=== PATIENT | male | born 1955 | race Caucasian/White ===

== ENCOUNTER 2019-02-19 16:34 | Inpatient (IN) | payer BC ==
[~2019-02-19] VITALS: Ht 185.4 cm; Wt 102.8 kg
[2019-02-19 22:00] VITALS: BP 121/64; PULSE 71; RESP 18
[2019-02-19] MEDS ORDERED: OLANZAPINE 2.5 MG TAB GTB PRN (22:00)
[2019-02-19] MEDS ORDERED: BISACODYL 10 MG SUPP PR PRN (22:00)
[2019-02-19] MEDS ORDERED: MAGNESIUM HYDROXIDE 30ML CUP GTB PRN (22:00)
[2019-02-19] MEDS ORDERED: NA PHOSPHATE/BIPHOS 133 ML ENEMA PR PRN (22:00)
[2019-02-19] MEDS ORDERED: PENDING SANTYL ORDER FOR WOUND CARE XX PRN (23:00)
[2019-02-20] MEDS: ALBUTEROL 0.083% (NEB) 2.5 MG/3 ML AMP HHN SCH ×6 (00:17→20:00)
[2019-02-20 02:25] VITALS: BP 151/78; PULSE 65; RESP 18
[2019-02-20 06:35] VITALS: Ht 185.4 cm; Wt 102.8 kg
[2019-02-20 08:00] VITALS: BP 110/60; PULSE 68; RESP 19
[2019-02-20] MEDS: CHOLECALCIFEROL 2,000 UNIT CAP GTB SCH (08:28)
[2019-02-20] MEDS: DOCUSATE SODIUM 10 MG/ML (10ML CUP) GTB SCH ×2 (08:28→21:40)
[2019-02-20] MEDS: FAMOTIDINE 20 MG TAB GTB SCH ×2 (08:28→21:40)
[2019-02-20] MEDS: NICOTINE (7 MG/24 HR) PATCH TRANSDERM SCH (08:28)
[2019-02-20] MEDS: ASPIRIN 81 MG TAB GTB SCH (08:28)
[2019-02-20] MEDS: CYANOCOBALAMIN 500 MCG TAB GTB SCH (08:28)
[2019-02-20] MEDS: CLOPIDOGREL 75 MG TAB GTB SCH (08:28)
[2019-02-20] MEDS: POLYETHYLENE GLYCOL 17 GM PACKET GTB SCH (08:29)
[2019-02-20] MEDS: LISINOPRIL 10 MG TAB GTB SCH (08:29)
--- NOTE | 2019-02-20 11:53 | CONS ---
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 ACTIVE COMORBIDITIES: 1. 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 2. Dysphagia, status post percutaneous endoscopic gastrostomy. 3. Aspiration pneumonia, acute respiratory failure. 4. Hyperlipidemia. 5. Hypertension. 6. Sepsis, urinary tract infection. 7. Gastritis. 8. Status post Clostridium difficile. 9. Hyperkalemia. 10. Impairments in self-care, mobility and cognition. HISTORY OF PRESENT ILLNESS: The patient is a 63-year-old male with a history of multiple medical comorbidities including hypertension, hyperlipidemia, coronary artery disease who was admitted to [facility] on 12/20/2018 with left-sided weakness. The patient was noted to have an infarct cerebrovascular accident in addition to right MCA and ICA occlusion. The patient underwent ELVO with thrombectomy and stent placement into the right carotid artery. The patient's hospital course was notable for vasogenic edema, aspiration pneumonia and dysphagia requiring PEG placement; cystitis in addition to sepsis, gastritis, anemia, and Clostridium difficile colitis. The patient has been stabilized. The patient was stabilized and transferred to halfway facility. The patient had improvement in level of alertness, activity tolerance, and participation and patient's family requested activities at the acute rehabilitation unit level. The patient was transferred to the rehabilitation unit for rehabilitation trial at the acute therapy level. FUNCTIONAL HISTORY: Prior to recent events, he was independent in self-care tasks and mobility. Currently, he is dependent, total assist for self-care and mobility tasks. I have reviewed the preadmission screen and patient's current functional status is consistent with the preadmission screen. FAMILY AND SOCIAL HISTORY: The patient normally resides at home with his in a multilevel home. He does hope to return home. He reports various modifications that he has at home including a stair lift. PAST MEDICAL HISTORY: 1. Hyperlipidemia. 2. Hypertension. 3. Myocardial infarction. 4. Gastritis. CURRENT MEDICATIONS: 1. Tylenol p.r.n. 2. Albuterol inhaler. 3. Pepcid 20 mg b.i.d. 4. Nicotine patch. 5. Zyprexa 0.5 mg p.o. at bedtime p.r.n. 6. MiraLax daily. 7. Aspirin 81 mg daily. 8. Atorvastatin 80 mg daily. 9. Carvedilol 12.5 mg b.i.d. 10. Lisinopril 10 mg p.o. daily. 11. Clopidogrel 15 mg daily. ALLERGIES: THE PATIENT WITH NO KNOWN DRUG ALLERGIES. PHYSICAL EXAMINATION: VITAL SIGNS: He is currently afebrile with stable vital signs. HEENT: Extra ocular motions appear intact. He has a nasal cannula in place. The oropharynx is clear. LUNGS: Clear anteriorly. CARDIAC: S1, S2. ABDOMEN: Soft, nontender, positive bowel sounds. NEUROLOGIC: He is awake and alert. He is oriented to person, hospital, and the month. However, when asked for the year he reported it was 1918. He has 0 out of 3 object recall at 5 minutes. He demonstrates good strength in the right upper and lower extremity. He has flaccid left upper and lower extremity. PLAN: The patient has been admitted for comprehensive interdisciplinary acute rehabilitation unit trial. The patient's activities will include: 1. Physical therapy to focus on bed mobility, trunk control, transfers, and wheelchair mobility with the goal of having the patient reach a 1-person assist level for transfers and wheelchair level activities. 2. Occupational therapy to focus on hygiene, grooming, dressing, bathing, and toileting activities at the seated level with the goal of having the patient reach a mod assist level for upper body self-care activities. 3. Rehabilitation nursing for carryover of therapeutic interventions, the goal of continent of bowel and bladder, and the goal of patient education with regards to the aforementioned issues. 4. Speech therapy for full cognitive assessment and retraining with the goal of having the patient return to baseline cognition in addition to full dysphagia evaluation with the goal of having the patient meet nutritional needs by mouth and have PEG removal. 5. Neuropsychology for full cognitive assessment and oversight of cognitive program. REHABILITATION BARRIER: Significant left-sided weakness. INTERVENTION FOR BARRIER: Interdisciplinary approach. ESTIMATED LENGTH OF STAY: Will perform the rehabilitation unit trial with anticipation in a full 14 days. I acknowledge that I performed a full physical examination on this patient within 24 hours of admission to the rehabilitation unit. I believe the patient is a candidate for rehabilitation unit trial and he is anticipated to make reasonable goals in a reasonable period of time as outlined above. Dictated By: ZEV GOLDEN/JOLIE Conf#: [id number] DID#: [id number] CC: SUNITA DAVIDSON DO;*EndCC* MTDD
[2019-02-20 14:00] VITALS: BP 96/55; PULSE 67; RESP 19
--- NOTE | 2019-02-20 14:10 | CONS ---
DATE OF ADMISSION: 02/19/2019 DATE OF CONSULTATION: 02/20/2019 HISTORY OF PRESENT ILLNESS: The patient is a 63-year-old gentleman with past medical history of hype rtension, hyperlipidemia, coronary artery disease. Patient admitted to [facility] on 12/20 with left-sided weakness, noted to have acute infarct in the right MCA and ICA occlusion. The patient underwent thrombectomy and stent placement in the right carotid artery. The patient's hospit al course was notable for vasogenic edema, aspiration pneumonia, dysphagia. Patient required intubat ion and tracheostomy, PEG placement. The patient stabilized and was able to be extubated and now is without any vent or trach. The patient has a left-sided hemiplegia with neglect. Patient transferre d to the rehabilitation unit for acute therapy. Patient admits to being depressed, complaining of pa in and complains of separation in his shoulder. He claims that his left Achilles tendon ruptured in the hospital, pain on the right side as a compensation for physical therapy, gets tired very quickly. The patient had pneumonia, was treated fully, unsure if this was seen in followup. He denies fever s, chills, nausea, vomiting, chest pain, shortness of breath. PAST MEDICAL HISTORY: As above, also include CO, gastritis. MEDICATIONS: 1. Albuterol. 2. Pepcid. 3. Nicotine. 4. Zyprexa. 5. MiraLax. 3. Aspirin. 4. Lipitor. 5. Coreg. 6. Lisinopril. 7. Plavix. ALLERGIES: PATIENT HAS NO KNOWN ALLERGIES. SOCIAL HISTORY: The patient does not smoke, drink or do drugs. FAMILY HISTORY: No history of kidney disease. REVIEW OF SYSTEMS: A 14-point review of systems attempted and negative. PHYSICAL EXAMINATION: VITAL SIGNS: We see temperature 98, blood pressure 151/78, pulse is 72. HEENT: Normocephalic. Pupils are reactive. NECK: Supple. HEART: Regular rate and rhythm. LUNGS: Clear to auscultation. ABDOMEN: Soft, nontender, nondistended. Bowel sounds present. LABORATORY EVALUATION: White count 12, hemoglobin 13, hematocrit 40. Sodium is 144, potassium 4.1, BUN 34, creatinine 1.1, albumin 3.6. UA is reviewed microscopy. IMPRESSION: 1. Status post right middle cerebral artery stroke status post thrombectomy and stent placement, rig ht carotid artery. Continue physical therapy as outlined, optimization for peripheral arterial disea se as already started with Plavix, Lipitor, Coreg and lisinopril and aspirin. Continue to monitor. 2. Recent Enterobacter pneumonia fully treated, required trach and PEG placement, completely decannu lated now. 3. Do chest x-rays as a baseline to make sure that no evidence of leukocytosis on admission. Trend. Check UA and chest x-ray. 4. History of hypertension, borderline at this time. Continue regular medications and monitor. 5. Coronary artery disease. Again, secondary prevention. 6. Depression. The patient will benefit from psychiatrist and psychologist evaluation. We will see what resources reveal here in acute rehab unit. Dictated By: BALTAZAR UGALDE MD DF/JOLIE Conf#: [id number] DID#: [id number] CC: SUNITA DAVIDSON DO;*End*
[2019-02-20] MEDS: ATORVASTATIN 80 MG TAB GTB SCH (21:40)
[2019-02-20] MEDS: SENNA TAB GTB SCH (21:40)
[2019-02-21] MEDS: ALBUTEROL 0.083% (NEB) 2.5 MG/3 ML AMP HHN SCH ×6 (01:00→20:01)
[2019-02-21 07:30] VITALS: BP 122/62; PULSE 78; RESP 20
[2019-02-21] MEDS: NICOTINE (7 MG/24 HR) PATCH TRANSDERM SCH (09:25)
[2019-02-21] MEDS: CLOPIDOGREL 75 MG TAB GTB SCH (09:25)
[2019-02-21] MEDS: LISINOPRIL 10 MG TAB GTB SCH (09:25)
[2019-02-21] MEDS: DOCUSATE SODIUM 10 MG/ML (10ML CUP) GTB SCH ×2 (09:25→20:15)
[2019-02-21] MEDS: POLYETHYLENE GLYCOL 17 GM PACKET GTB SCH (09:25)
[2019-02-21] MEDS: FAMOTIDINE 20 MG TAB GTB SCH ×2 (09:25→20:14)
[2019-02-21] MEDS: CHOLECALCIFEROL 2,000 UNIT CAP GTB SCH (09:25)
[2019-02-21] MEDS: ASPIRIN 81 MG TAB GTB SCH (09:26)
[2019-02-21] MEDS: CYANOCOBALAMIN 500 MCG TAB GTB SCH (09:26)
[2019-02-21] MEDS ORDERED: GLUCOSE GEL 15 GRAM TUBE PO PRN ×2 (14:30)
[2019-02-21] MEDS ORDERED: DEXTROSE 50% 50 ML SYRINGE IV PRN ×2 (14:30)
[2019-02-21] MEDS ORDERED: GLUCAGON 1 MG INJ IM PRN (14:30)
[2019-02-21] MEDS ORDERED: GLUCOSE GEL 15 GRAM TUBE BUCCAL PRN (14:30)
--- NOTE | 2019-02-21 15:01 | PN ---
Date/Time of Note Date/Time of Note DATE: 02/21/19 TIME: 14:59 Subjective No new complaints Objective Vital Signs Date Temp Pulse Resp B/P (MAP) Pulse Ox O2 O2 Flow FiO2 Time Delivery Rate 02/21/19 78 18 95 Nasal 2.0 07:55 Cannula 02/21/19 98.2 122/62 07:30 (82) 02/20/19 21 20:00 Intake and Output 02/20/19 02/20/19 02/21/19 1515:00 23:00 07:00 IntakeIntake Total 300 ml 920 ml 930 ml BalanceBalance 300 ml 920 ml 930 ml Exam pulm-cta dependent Results/Medications Result Diagram: 02/21/1962102/20/19 0633 Results 24 hrs Laboratory Tests Test 02/20/19 15:00 02/21/19 06:22 Urine Color YELLOW Urine Clarity SLIGHTLY CLOUDY A Urine pH 6.0 Urine Specific Raymond 1.019 Urine Ketones NEGATIVE Urine Nitrite NEGATIVE Urine Bilirubin NEGATIVE Urine Urobilinogen 1+ H Urine Leukocyte Esterase NEGATIVE Urine Microscopic RBC 1 Urine Microscopic WBC 1 Urine Squamous Epithelial Cells FEW Urine Bacteria FEW A Urine Hemoglobin NEGATIVE Urine Glucose NEGATIVE Urine Total Protein NEGATIVE White Blood Count 13.4 H Red Blood Count 4.62 L Hemoglobin 13.5 L Hematocrit 42.0 Mean Corpuscular Volume 90.9 Mean Corpuscular Hemoglobin 29.2 Mean Corpuscular Hemoglobin Concent 32.1 Red Cell Distribution Width 16.3 H Platelet Count 328 Mean Platelet Volume 12.9 H Immature Granulocytes % 0.400 Neutrophils % 64.8 Lymphocytes % 19.5 Monocytes % 8.2 Eosinophils % 6.3 Basophils % 0.8 Nucleated Red Blood Cells % 0.0 Immature Granulocytes # 0.060 H Neutrophils # 8.7 H Lymphocytes # 2.6 Monocytes # 1.1 H Eosinophils # 0.8 H Basophils # 0.1 Nucleated Red Blood Cells # 0.0 Medications Current Medications Acetaminophen (Tylenol Tab) 650 mg Q4H PRN PEG MILD PAIN(1-3)OR ELEVATED TEMP; Start 02/19/19 at 22:00 Albuterol (Proventil 0.083% (Neb)) 2.5 mg Q4H RESP THERAPY HHN Last administered on 02/21/19at 07:53; Admin Dose 2.5 MG; Start 02/20/19 at 01:00 Aspirin (Aspirin) 81 mg DAILY GTB Last administered on 02/21/19 09:26; Admin Dose 81 MG; Start 02/20/19 at 09:00 Atorvastatin Calcium (Lipitor) 80 mg HS GTB Last administered on 02/20/19 2 1:40; Admin Dose 80 MG; Start 02/20/19 at 21:00 Carvedilol (Coreg) 12.5 mg BID GTB Last administered on 02/21/19 09:26; Admin Dose 12.5 MG; Start 02/20/19 at 09:00 Docusate Sodium (Colace Liquid Cup) 100 mg BID GTB Last administered on 02/21/19 09:25; Admin Dose 100 MG; Start 02/20/19 at 09:00 Bisacodyl (Dulcolax Supp) 10 mg DAILY PRN [place] CONSTIPATION; Start 02/19/19 at 22:00 Sodium Biphosphate/ Sodium Phosphate (Fleet Enema) 133 ml DAILY PRN [place] CONSTIPATION; Start 02/19/19 at 22:00 Lisinopril (Zestril) 10 mg DAILY GTB Last administered on 02/21/19 09:25; Admin Dose 10 MG; Start 02/20/19 at 09:00 Magnesium Hydroxide (Milk Of Mag) 30 ml DAILY PRN GTB CONSTIPATION; Start 02/19/19 at 22:00 Polyethylene Glycol (Miralax) 17 gm DAILY GTB Last administered on 02/21/19 09:25; Admin Dose 17 GM; Start 02/20/19 at 09:00 Nicotine (Nicoderm 7 Mg/ 24 Hr) 1 patch DAILY TRANSDERM Last administered on 02/21/19 09:25; Admin Dose 1 PATCH; Start 02/20/19 at 09:00 Famotidine (Pepcid) 20 mg BID GTB Last administered on 02/21/19 09:25; Admin Dose 20 MG; Start 02/20/19 at 09:00 Clopidogrel Bisulfate (plaVIX) 75 mg DAILY GTB Last administered on 02/21/19 09:25; Admin Dose 75 MG; Start 02/20/19 at 09:00 Senna (Senokot) 1 tab HS GTB Last administered on 02/20/19 21:40; Admin Dose 1 TAB; Start 02/20/19 at 21:00 Cyanocobalamin (Vitamin B12) 1,000 mcg DAILY GTB Last administered on 02/21/19at 09:26; Admin Dose 1,000 MCG; Start 02/20/19 at 09:00 Cholecalciferol (Vitamin D) 2,000 unit DAILY GTB Last administered on 02/21/19at 09:25; Admin Dose 2,000 UNIT; Start 02/20/19 at 09:00 Olanzapine (Zyprexa) 2.5 mg HS PRN GTB ANXIETY; Start 02/19/19 at 22:00 [facility]isc[facility] This patient sandhu... PRN PRN XX WOUND CARE; Start 02/19/19 at 23:00 Insulin Aspart (Novolog Insulin Pen) NOVOLOG *MILD* ALGORI... Q6 SC ; Start 02/21/19 at 18:00 Miscellaneous Information 1 ea NOTE XX ; Start 02/21/19 at 14:30 Glucose (Glutose) 15 gm Q15M PRN PO DECREASED GLUCOSE; Start 02/21/19 at 14:30 Glucose (Glutose) 22.5 gm Q15M PRN PO DECREASED GLUCOSE; Start 02/21/19 at 14:30 Dextrose (D50w Syringe) 25 ml Q15M PRN IV DECREASED GLUCOSE; Start 02/21/19 at 14:30 Dextrose (D50w Syringe) 50 ml Q15M PRN IV DECREASED GLUCOSE; Start 02/21/19 at 14:30 Glucagon (Glucagen) 1 mg Q15M PRN IM DECREASED GLUCOSE; Start 02/21/19 at 14:30 Glucose (Glutose) 15 gm Q15M PRN BUCCAL DECREASED GLUCOSE; Start 02/21/19 at 14:30 Assessment/Plan Additional Assessment/Plan Rehab- 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 Continue rehab program Dysphagia, status post PEG. Case reviewed with ST, will schedule videofluoro Aspiration pneumonia, acute respiratory failure. Hyperlipidemia. Hypertension. s/p Sepsis, urinary tract infection. Gastritis. ZEV LIVE MD Feb 21, 2019 15:00
[2019-02-21 15:23] VITALS: BP 95/59; PULSE 67; RESP 18
[2019-02-21] MEDS: INSULIN ASPART [NOVOLOG] 3 ML PEN SC SCH (17:42)
[2019-02-21 20:12] VITALS: BP 137/70; PULSE 74; RESP 19
[2019-02-21] MEDS: ATORVASTATIN 80 MG TAB GTB SCH (20:14)
[2019-02-21] MEDS: SENNA TAB GTB SCH (20:14)
[2019-02-21] MEDS: ACETAMINOPHEN 325 MG TAB PEG PRN (20:14)
--- NOTE | 2019-02-21 22:58 | CONS ---
Consult Date/Type/Reason Admit Date/Time Feb 19, 2019 at 21:20 Initial Consult Date 63-year-old gentleman with past medical history of hypertension, hyperlipidemia, coronary artery disease. Patient admitted to [facility] on 12/20/2018 with left-sided weakness, noted to have acute infarct in the right MCA and ICA occlusion. The patient underwent thrombectomy and stent placement in the right carotid artery. The patient's hospital course was notable for vasogenic edema, aspiration pneumonia, dysphagia. Patient required intubation and tracheostomy, PEG placement. The patient stabilized and was able to be extubated and now is without any vent or trach. The patient has a left-sided hemiplegia with neglect. Patient transferred to the rehabilitation unit for acute therapy. Patient admits to being depressed, complaining of pain and complains of separation in his shoulder. He claims that his left Achilles tendon ruptured in the hospital, pain on the right side as a compensation for physical therapy, gets tired very quickly. The patient had pneumonia, was treated fully. He denies fevers, chills, nausea, vomiting, chest pain, shortness of breath. tolerates meds and therapies. a little less depressed today. PHYSICAL EXAMINATION: HEENT: Normocephalic. Pupils are reactive. NECK: Supple. HEART: Regular rate and rhythm. LUNGS: Clear to auscultation. ABDOMEN: Soft, nontender, nondistended. Bowel sounds present. Date/Time of Note DATE: 02/21/19 TIME: 22:56 Objective Vitals Vital Signs Date Temp Pulse Resp B/P (MAP) Pulse Ox O2 O2 Flow FiO2 Time Delivery Rate 02/21/19 97.9 74 19 137/70 96 20:12 (92) 02/21/19 2.0 20:01 02/21/19 Nasal 20:01 Cannula 02/20/19 21 20:00 Intake and Output 02/20/19 02/20/19 02/21/19 1515:00 23:00 07:00 IntakeIntake Total 300 ml 920 ml 930 ml BalanceBalance 300 ml 920 ml 930 ml Results/Medications Result Diagram: 02/21/19 0622 02/20/19 0633 Results 24 hrs Laboratory Tests Test 02/21/19 06:22 02/21/19 17:34 White Blood Count 13.4 H Red Blood Count 4.62 L Hemoglobin 13.5 L Hematocrit 42.0 Mean Corpuscular Volume 90.9 Mean Corpuscular Hemoglobin 29.2 Mean Corpuscular Hemoglobin Concent 32.1 Red Cell Distribution Width 16.3 H Platelet Count 328 Mean Platelet Volume 12.9 H Immature Granulocytes % 0.400 Neutrophils % 64.8 Lymphocytes % 19.5 Monocytes % 8.2 Eosinophils % 6.3 Basophils % 0.8 Nucleated Red Blood Cells % 0.0 Immature Granulocytes # 0.060 H Neutrophils # 8.7 H Lymphocytes # 2.6 Monocytes # 1.1 H Eosinophils # 0.8 H Basophils # 0.1 Nucleated Red Blood Cells # 0.0 Bedside Glucose 111 Medications Current Medications Acetaminophen (Tylenol Tab) 650 mg Q4H PRN PEG MILD PAIN(1-3)OR ELEVATED TEMP Last administered on 02/21/19 20:14; Admin Dose 650 MG; Start 02/19/19 at 22:00 Albuterol (Proventil 0.083% (Neb)) 2.5 mg Q4H RESP THERAPY HHN Last administered on 02/21/19 20:01; Admin Dose 2.5 MG; Start 02/20/19 at 01:00 Aspirin (Aspirin) 81 mg DAILY GTB Last administered on 02/21/19 09:26; Admin Dose 81 MG; Start 02/20/19 at 09:00 Atorvastatin Calcium (Lipitor) 80 mg HS GTB Last administered on 02/21/19 20:14; Admin Dose 80 MG; Start 02/20/19 at 21:00 Carvedilol (Coreg) 12.5 mg BID GTB Last administered on 02/21/19 20:15; Admin Dose 12.5 MG; Start 02/20/19 at 09:00 Docusate Sodium (Colace Liquid Cup) 100 mg BID GTB Last administered on 02/21/19 20:15; Admin Dose 100 MG; Start 02/20/19 at 09:00 Bisacodyl (Dulcolax Supp) 10 mg DAILY PRN [place] CONSTIPATION; Start 02/19/19 at 22:00 Sodium Biphosphate/ Sodium Phosphate (Fleet Enema) 133 ml DAILY PRN [place] CONSTIPATION; Start 02/19/19 at 22:00 Lisinopril (Zestril) 10 mg DAILY GTB Last administered on 02/21/19 09:25; Admin Dose 10 MG; Start 02/20/19 at 09:00 Magnesium Hydroxide (Milk Of Mag) 30 ml DAILY PRN GTB CONSTIPATION; Start 02/19/19 at 22:00 Polyethylene Glycol (Miralax) 17 gm DAILY GTB Last administered on 02/21/19at 0 9:25; Admin Dose 17 GM; Start 02/20/19 at 09:00 Nicotine (Nicoderm 7 Mg/ 24 Hr) 1 patch DAILY TRANSDERM Last administered on 02/21/19 09:25; Admin Dose 1 PATCH; Start 02/20/19 at 09:00 Famotidine (Pepcid) 20 mg BID GTB Last administered on 02/21/19 20:14; Admin Dose 20 MG; Start 02/20/19 at 09:00 Clopidogrel Bisulfate (plaVIX) 75 mg DAILY GTB Last administered on 02/21/19 09:25; Admin Dose 75 MG; Start 02/20/19 at 09:00 Senna (Senokot) 1 tab HS GTB Last administered on 02/21/19 20:14; Admin Dose 1 TAB; Start 02/20/19 at 21:00 Cyanocobalamin (Vitamin B12) 1,000 mcg DAILY GTB Last administered on 02/21/19 09:26; Admin Dose 1,000 MCG; Start 02/20/19 at 09:00 Cholecalciferol (Vitamin D) 2,000 unit DAILY GTB Last administered on 02/21/19 09:25; Admin Dose 2,000 UNIT; Start 02/20/19 at 09:00 Olanzapine (Zyprexa) 2.5 mg HS PRN GTB ANXIETY Last administered on 02/21/19 22:22; Admin Dose 2.5 MG; Start 02/19/19 at 22:00 Miscellaneous Information (Pending [facility] Order For Wound Care) This patient sandhu... PRN PRN XX WOUND CARE; Start 02/19/19 at 23:00 Insulin Aspart (Novolog Insulin Pen) NOVOLOG *MILD* ALGORI... Q6 SC ; Start 02/21/19 at 18:00 Miscellaneous Information 1 ea NOTE XX ; Start 02/21/19 at 14:30 Glucose (Glutose) 15 gm Q15M PRN PO DECREASED GLUCOSE; Start 02/21/19 at 14:30 Glucose (Glutose) 22.5 gm Q15M PRN PO DECREASED GLUCOSE; Start 02/21/19 at 14:30 Dextrose (D50w Syringe) 25 ml Q15M PRN IV DECREASED GLUCOSE; Start 02/21/19 at 14:30 Dextrose (D50w Syringe) 50 ml Q15M PRN IV DECREASED GLUCOSE; Start 02/21/19 at 14:30 Glucagon (Glucagen) 1 mg Q15M PRN IM DECREASED GLUCOSE; Start 02/21/19 at 14:30 Glucose (Glutose) 15 gm Q15M PRN BUCCAL DECREASED GLUCOSE; Start 02/21/19 at 14:30 Assessment/Plan Hospital Course (Demo Recall) 1. 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 Continue physical therapy as outlined, optimization for peripheral arterial disease as already started with Plavix, Lipitor, Coreg and lisinopril and aspirin. Continue to monitor. 2. Recent Enterobacter pneumonia fully treated, required trach and PEG placement, completely decannulated now. 3. leucocytosis. Do chest x-rays as a baseline to make sure that no evidence o f leukocytosis on admission. Trend. Check UA and chest x-ray. 4. History of hypertension, borderline at this time. Continue regular medications and monitor. 5. Coronary artery disease. secondary prevention. 6. Depression. The patient will benefit from psychiatrist and psychologist evaluation. We will see what resources reveal here in acute rehab unit. BALTAZAR UGALDE MD Feb 21, 2019 22:58
[2019-02-22] MEDS: ALBUTEROL 0.083% (NEB) 2.5 MG/3 ML AMP HHN SCH ×5 (01:00→20:06)
[2019-02-22 02:06] VITALS: BP 136/66; PULSE 68; RESP 20
[2019-02-22] MEDS: INSULIN ASPART [NOVOLOG] 3 ML PEN SC SCH ×2 (06:00)
[2019-02-22 07:00] VITALS: BP 108/61; PULSE 66; RESP 18
[2019-02-22] MEDS: LISINOPRIL 10 MG TAB GTB SCH (09:00)
[2019-02-22] MEDS: NICOTINE (7 MG/24 HR) PATCH TRANSDERM SCH (10:00)
[2019-02-22] MEDS: DOCUSATE SODIUM 10 MG/ML (10ML CUP) GTB SCH ×2 (10:00→20:57)
[2019-02-22] MEDS: CLOPIDOGREL 75 MG TAB GTB SCH (10:01)
[2019-02-22] MEDS: CYANOCOBALAMIN 500 MCG TAB GTB SCH (10:01)
[2019-02-22] MEDS: FAMOTIDINE 20 MG TAB GTB SCH ×2 (10:01→21:09)
[2019-02-22] MEDS: ASPIRIN 81 MG TAB GTB SCH (10:01)
[2019-02-22] MEDS: CHOLECALCIFEROL 2,000 UNIT CAP GTB SCH (10:01)
[2019-02-22] MEDS: POLYETHYLENE GLYCOL 17 GM PACKET GTB SCH (10:05)
--- NOTE | 2019-02-22 10:35 | CONS ---
Consult Date/Type/Reason Admit Date/Time Feb 19, 2019 at 21:20 Initial Consult Date 63-year-old gentleman with past medical history of hypertension, hyperlipidemia, coronary artery disease. Patient admitted to [facility] on 12/20/2018 with left-sided weakness, noted to have acute infarct in the right MCA and ICA occlusion. The patient underwent thrombectomy and stent placement in the right carotid artery. The patient's hospital course was notable for vasogenic edema, aspiration pneumonia, dysphagia. Patient required intubation and tracheostomy, PEG placement. The patient stabilized and was able to be extubated and now is without any vent or trach. The patient has a left-sided hemiplegia with neglect. Patient transferred to the rehabilitation unit for acute therapy. Patient admits to being depressed, complaining of pain and complains of separation in his shoulder. He claims that his left Achilles tendon ruptured in the hospital, pain on the right side as a compensation for physical therapy, gets tired very quickly. The patient had pneumonia, was treated fully. He denies fevers, chills, nausea, vomiting, chest pain, shortness of breath. tolerates meds and therapies. a little less depressed today. PHYSICAL EXAMINATION: HEENT: Normocephalic. Pupils are reactive. NECK: Supple. HEART: Regular rate and rhythm. LUNGS: Clear to auscultation. ABDOMEN: Soft, nontender, nondistended. Bowel sounds present. Date/Time of Note DATE: 02/22/19 TIME: 10:34 Subjective 63-year-old gentleman with past medical history of hypertension, hyperlipidemia, coronary artery disease. Patient admitted to [facility] on 12/20/2018 with left-sided weakness, noted to have acute infarct in the right MCA and ICA occlusion. The patient underwent thrombectomy and stent placement in the right carotid artery. The patient's hospital course was notable for vasogenic edema, aspiration pneumonia, dysphagia. Patient required intubation and tracheostomy, PEG placement. The patient stabilized and was able to be extubated and now is without any vent or trach. The patient has a left-sided hemiplegia with neglect. Patient transferred to the rehabilitation unit for acute therapy. Patient admits to being depressed, complaining of pain and complains of separation in his shoulder. He claims that his left Achilles tendon ruptured in the hospital, pain on the right side as a compensation for physical therapy, gets tired very quickly. The patient had pneumonia, was treated fully. He denies fevers, chills, nausea, vomiting, chest pain, shortness of breath. tolerates meds and therapies. denies co PHYSICAL EXAMINATION: HEENT: Normocephalic. Pupils are reactive. NECK: Supple. HEART: Regular rate and rhythm. LUNGS: Clear to auscultation. ABDOMEN: Soft, nontender, nondistended. Bowel sounds present. Objective Vitals Vital Signs Date Temp Pulse Resp B/P (MAP) Pulse Ox O2 O2 Flow FiO2 Time Delivery Rate 02/22/19 76 20 Nasal 09:45 Cannula 02/22/19 2.0 09:45 02/22/19 97.8 108/61 96 07:00 (77) 02/20/19 21 20:00 Intake and Output 02/21/19 02/21/19 02/22/19 1515:00 23:00 07:00 IntakeIntake Total 700 ml 400 ml 250 ml BalanceBalance 700 ml 400 ml 250 ml Results/Medications Result Diagram: 02/21/1922 02/20/19 0633 Results 24 hrs Laboratory Tests Test 02/21/19 17:34 02/22/19 00:06 02/22/19 06:21 Bedside Glucose 111 126 131 Medications Current Medications Acetaminophen (Tylenol Tab) 650 mg Q4H PRN PEG MILD PAIN(1-3)OR ELEVATED TEMP Last administered on 02/21/19at 20:14; Admin Dose 650 MG; Start 02/19/19 at 22:00 Albuterol (Proventil 0.083% (Neb)) 2.5 mg Q4H RESP THERAPY HHN Last administered on 02/22/19at 09:45; Admin Dose 2.5 MG; Start 02/20/19 at 01:00 Aspirin (Aspirin) 81 mg DAILY GTB Last administered on 02/22/19at 10:01; Admin Dose 81 MG; Start 02/20/19 at 09:00 Atorvastatin Calcium (Lipitor) 80 mg HS GTB Last administered on 02/21/19at 20:14; Admin Dose 80 MG; Start 02/20/19 at 21:00 Carvedilol (Coreg) 12.5 mg BID GTB Last administered on 02/21/19at 20:15; Admin Dose 12.5 MG; Start 02/20/19 at 09:00 Docusate Sodium (Colace Liquid Cup) 100 mg BID GTB Last administered on 02/22/19 10:00; Admin Dose 100 MG; Start 02/20/19 at 09:00 Bisacodyl (Dulcolax Supp) 10 mg DAILY PRN [place] CONSTIPATION; Start 02/19/19 at 22:00 Sodium Biphosphate/ Sodium Phosphate (Fleet Enema) 133 ml DAILY PRN [place] CONSTIPATION; Start 02/19/19 at 22:00 Lisinopril (Zestril) 10 mg DAILY GTB Last administered on 02/21/19 09:25; Admin Dose 10 MG; Start 02/20/19 at 09:00 Magnesium Hydroxide (Milk Of Mag) 30 ml DAILY PRN GTB CONSTIPATION; Start 02/19/19 at 22:00 Polyethylene Glycol (Miralax) 17 gm DAILY GTB Last administered on 02/22/19 10:05; Admin Dose 17 GM; Start 02/20/19 at 09:00 Nicotine (Nicoderm 7 Mg/ 24 Hr) 1 patch DAILY TRANSDERM Last administered on 02/22/19 10:00; Admin Dose 1 PATCH; Start 02/20/19 at 09:00 Famotidine (Pepcid) 20 mg BID GTB Last administered on 02/22/19 10:01; Admin Dose 20 MG; Start 02/20/19 at 09:00 Clopidogrel Bisulfate (plaVIX) 75 mg DAILY GTB Last administered on 02/22/19 10:01; Admin Dose 75 MG; Start 02/20/19 at 09:00 Senna (Senokot) 1 tab HS GTB Last administered on 02/21/19 20:14; Admin Dose 1 TAB; Start 02/20/19 at 21:00 Cyanocobalamin (Vitamin B12) 1,000 mcg DAILY GTB Last administered on 02/22/19 10:01; Admin Dose 1,000 MCG; Start 02/20/19 at 09:00 Cholecalciferol (Vitamin D) 2,000 unit DAILY GTB Last administered on 02/22/19 10:01; Admin Dose 2,000 UNIT; Start 02/20/19 at 09:00 Olanzapine (Zyprexa) 2.5 mg HS PRN GTB ANXIETY Last administered on 02/21/19 22:22; Admin Dose 2.5 MG; Start 02/19/19 at 22:00 Miscellaneous Information (Pending [facility] Order For Wound Care) This patient sandhu... PRN PRN XX WOUND CARE; Start 02/19/19 at 23:00 Insulin Aspart (Novolog Insulin Pen) NOVOLOG *MILD* ALGORI... Q6 SC ; Start 02/21/19 at 18:00 Miscellaneous Information 1 ea NOTE XX ; Start 02/21/19 at 14:30 Glucose (Glutose) 15 gm Q15M PRN PO DECREASED GLUCOSE; Start 02/21/19 at 14:30 Glucose (Glutose) 22.5 gm Q15M PRN PO DECREASED GLUCOSE; Start 02/21/19 at 14:30 Dextrose (D50w Syringe) 25 ml Q15M PRN IV DECREASED GLUCOSE; Start 02/21/19 at 14:30 Dextrose (D50w Syringe) 50 ml Q15M PRN IV DECREASED GLUCOSE; Start 02/21/19 at 14:30 Glucagon (Glucagen) 1 mg Q15M PRN IM DECREASED GLUCOSE; Start 02/21/19 at 14:30 Glucose (Glutose) 15 gm Q15M PRN BUCCAL DECREASED GLUCOSE; Start 02/21/19 at 14:30 Assessment/Plan Hospital Course (Demo Recall) 1. 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 Continue physical therapy as outlined, optimization for peripheral arterial disease as already started with Plavix, Lipitor, Coreg and lisinopril and aspirin. Continue to monitor. 2. Recent Enterobacter pneumonia fully treated, required trach and PEG p lacement, completely decannulated now. 3. leucocytosis. Do chest x-rays as a baseline to make sure that no evidence of leukocytosis on admission. Trend. Check UA and chest x-ray. 4. History of hypertension, borderline at this time. Continue regular medications and monitor. 5. Coronary artery disease. secondary prevention. 6. Depression. The patient will benefit from psychiatrist and psychologist evaluation. We will see what resources reveal here in acute rehab unit. BALTAZAR UGALDE MD Feb 22, 2019 10:35
--- NOTE | 2019-02-22 10:53 | PN ---
Date/Time of Note Date/Time of Note DATE: 02/22/19 TIME: 10:52 Subjective AWAKE ALERT NO C/O Objective Vital Signs Date Temp Pulse Resp B/P (MAP) Pulse Ox O2 O2 Flow FiO2 Time Delivery Rate 02/22/19 76 20 Nasal 09:45 Cannula 02/22/19 2.0 09:45 02/22/19 97.8 108/61 96 07:00 (77) 02/20/19 21 20:00 Intake and Output 02/21/19 02/21/19 02/22/19 1515:00 23:00 07:00 IntakeIntake Total 700 ml 400 ml 250 ml BalanceBalance 700 ml 400 ml 250 ml Exam LUNGS CTA COR RRR DENSE L GENIE CLOF MAX/DE ALL MOBS Results/Medications Result Diagram: 02/21/19 0622 02/20/19 0633 Results 24 hrs Laboratory Tests Test 02/21/19 17:34 02/22/19 00:06 02/22/19 06:21 Bedside Glucose 111 126 131 Medications Current Medications Acetaminophen (Tylenol Tab) 650 mg Q4H PRN PEG MILD PAIN(1-3)OR ELEVATED TEMP Last administered on 02/21/19 20:14; Admin Dose 650 MG; Start 02/19/19 at 22:00 Albuterol (Proventil 0.083% (Neb)) 2.5 mg Q4H RESP THERAPY HHN Last administered on 02/22/19at 09:45; Admin Dose 2.5 MG; Start 02/20/19 at 01:00 Aspirin (Aspirin) 81 mg DAILY GTB Last administered on 02/22/19 10:01; Admin Dose 81 MG; Start 02/20/19 at 09:00 Atorvastatin Calcium (Lipitor) 80 mg HS GTB Last administered on 02/21/19 20:14; Admin Dose 80 MG; Start 02/20/19 at 21:00 Carvedilol (Coreg) 12.5 mg BID GTB Last administered on 02/21/19 20:15; Admin Dose 12.5 MG; Start 02/20/19 at 09:00 Docusate Sodium (Colace Liquid Cup) 100 mg BID GTB Last administered on 02/22/19at 10:00; Admin Dose 100 MG; Start 02/20/19 at 09:00 Bisacodyl (Dulcolax Supp) 10 mg DAILY PRN [place] CONSTIPATION; Start 02/19/19 at 22:00 Sodium Biphosphate/ Sodium Phosphate (Fleet Enema) 133 ml DAILY PRN [place] CONSTIPATION; Start 02/19/19 at 22:00 Lisinopril (Zestril) 10 mg DAILY GTB Last administered on 02/21/19 09:25; Admin Dose 10 MG; Start 02/20/19 at 09:00 Magnesium Hydroxide (Milk Of Mag) 30 ml DAILY PRN GTB CONSTIPATION; Start 02/19/19 at 22:00 Polyethylene Glycol (Miralax) 17 gm DAILY GTB Last administered on 02/22/19 10:05; Admin Dose 17 GM; Start 02/20/19 at 09:00 Nicotine (Nicoderm 7 Mg/ 24 Hr) 1 patch DAILY TRANSDERM Last administered on 02/22/19 10:00; Admin Dose 1 PATCH; Start 02/20/19 at 09:00 Famotidine (Pepcid) 20 mg BID GTB Last administered on 02/22/19 10:01; Admin Dose 20 MG; Start 02/20/19 at 09:00 Clopidogrel Bisulfate (plaVIX) 75 mg DAILY GTB Last administered on 02/22/19 10:01; Admin Dose 75 MG; Start 02/20/19 at 09:00 Senna (Senokot) 1 tab HS GTB Last administered on 02/21/19at 20:14; Admin Dose 1 TAB; Start 02/20/19 at 21:00 Cyanocobalamin (Vitamin B12) 1,000 mcg DAILY GTB Last administered on 02/22/19 10:01; Admin Dose 1,000 MCG; Start 02/20/19 at 09:00 Cholecalciferol (Vitamin D) 2,000 unit DAILY GTB Last administered on 02/22/19 10:01; Admin Dose 2,000 UNIT; Start 02/20/19 at 09:00 Olanzapine (Zyprexa) 2.5 mg HS PRN GTB ANXIETY Last administered on 02/21/19at 22:22; Admin Dose 2.5 MG; Start 02/19/19 at 22:00 Miscellaneous Information (Pending [facility] Order For Wound Care) This patient sandhu... PRN PRN XX WOUND CARE; Start 02/19/19 at 23:00 Insulin Aspart (Novolog Insulin Pen) NOVOLOG *MILD* ALGORI... Q6 SC ; Start 02/21/19 at 18:00 Miscellaneous Information 1 ea NOTE XX ; Start 02/21/19 at 14:30 Glucose (Glutose) 15 gm Q15M PRN PO DECREASED GLUCOSE; Start 02/21/19 at 14:30 Glucose (Glutose) 22.5 gm Q15M PRN PO DECREASED GLUCOSE; Start 02/21/19 at 14:30 Dextrose (D50w Syringe) 25 ml Q15M PRN IV DECREASED GLUCOSE; Start 02/21/19 at 14:30 Dextrose (D50w Syringe) 50 ml Q15M PRN IV DECREASED GLUCOSE; Start 02/21/19 at 14:30 Glucagon (Glucagen) 1 mg Q15M PRN IM DECREASED GLUCOSE; Start 02/21/19 at 14:30 Glucose (Glutose) 15 gm Q15M PRN BUCCAL DECREASED GLUCOSE; Start 02/21/19 at 14 :30 Assessment/Plan Additional Assessment/Plan Rehab- 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 Continue rehab program, ASA Dysphagia, status post PEG. CLEARED FOR PUREED/ THIN. DC TUBE FEEDS EXCEPT FOR WATER PGT Aspiration pneumonia, acute respiratory failure. Hyperlipidemia. Hypertension. s/p Sepsis, urinary tract infection. Gastritis. TAMIKO LIVE MD Feb 22, 2019 10:53
[2019-02-22 14:00] VITALS: BP 128/98; PULSE 70; RESP 18
[2019-02-22 20:00] VITALS: BP 118/67; PULSE 68; RESP 18
[2019-02-22] MEDS: SENNA TAB GTB SCH (21:00)
[2019-02-22] MEDS: ATORVASTATIN 80 MG TAB GTB SCH (21:08)
[2019-02-23] MEDS: ACETAMINOPHEN 325 MG TAB PEG PRN (00:19)
[2019-02-23] MEDS: ALBUTEROL 0.083% (NEB) 2.5 MG/3 ML AMP HHN SCH ×7 (01:00→20:33)
[2019-02-23 02:00] VITALS: BP 122/62; PULSE 70; RESP 18
[2019-02-23 07:30] VITALS: BP 150/84; PULSE 80; RESP 20
[2019-02-23] MEDS: DOCUSATE SODIUM 10 MG/ML (10ML CUP) GTB SCH ×2 (08:53→21:09)
[2019-02-23] MEDS: POLYETHYLENE GLYCOL 17 GM PACKET GTB SCH (08:54)
[2019-02-23] MEDS: ASPIRIN 81 MG TAB GTB SCH (08:55)
[2019-02-23] MEDS: CLOPIDOGREL 75 MG TAB GTB SCH (08:55)
[2019-02-23] MEDS: FAMOTIDINE 20 MG TAB GTB SCH ×2 (08:55→21:04)
[2019-02-23] MEDS: CHOLECALCIFEROL 2,000 UNIT CAP GTB SCH (08:55)
[2019-02-23] MEDS: CYANOCOBALAMIN 500 MCG TAB GTB SCH (08:55)
[2019-02-23] MEDS: NICOTINE (7 MG/24 HR) PATCH TRANSDERM SCH (08:57)
[2019-02-23] MEDS: LISINOPRIL 10 MG TAB GTB SCH (08:57)
[2019-02-23 14:00] VITALS: BP 104/59; PULSE 69; RESP 20
[2019-02-23] MEDS ORDERED: ACETAMINOPHEN 500 MG TAB PO PRN (18:30)
--- NOTE | 2019-02-23 19:21 | CONS ---
Consult Date/Type/Reason Admit Date/Time Feb 19, 2019 at 21:20 Date/Time of Note DATE: 02/23/19 TIME: 19:17 Subjective 63-year-old gentleman with past medical history of hypertension, hyperlipidemia, coronary artery disease. Patient admitted to [facility] on 12/20/2018 with left-sided weakness, noted to have acute infarct in the right MCA and ICA occlusion. The patient underwent thrombectomy and stent placement in the right carotid artery. The patient's hospital course was notable for vasogenic edema, aspiration pneumonia, dysphagia. Patient required intubation and tracheostomy, PEG placement. The patient stabilized and was able to be extubated and now is without any vent or trach. The patient has a left-sided hemiplegia with neglect. Patient transferred to the rehabilitation unit for acute therapy. Patient admits to being depressed, complaining of pain and complains of separation in his shoulder. He claims that his left Achilles tendon ruptured in the hospital, pain on the right side as a compensation for physical therapy, gets tired very quickly. The patient had pneumonia, was treated fully. He denies fevers, chills, nausea, vomiting, chest pain, shortness of breath. tolerates meds and therapies. a little lethargic today. denies dysuria. noted incontinence of urine PHYSICAL EXAMINATION: HEENT: Normocephalic. Pupils are reactive. NECK: Supple. HEART: Regular rate and rhythm. LUNGS: Clear to auscultation. ABDOMEN: Soft, nontender, nondistended. Bowel sounds present. ext: no clubbing, cyanosis, edema Objective Vitals Vital Signs Date Temp Pulse Resp B/P (MAP) Pulse Ox O2 O2 Flow FiO2 Time Delivery Rate 02/23/19 97.6 69 20 104/59 96 Nasal 2.0 14:00 (74) Cannula 02/20/19 21 20:00 Intake and Output 02/22/19 02/22/19 02/23/19 1515:00 23:00 07:00 IntakeIntake Total 150 ml 700 ml 900 ml OutputOutput Total 600 ml BalanceBalance 150 ml 100 ml 900 ml Results/Medications Result Diagram: 02/21/19 0622 02/20/19 0633 Results 24 hrs Laboratory Tests Test 02/23/19 15:30 Urine Color YELLOW Urine Clarity SLIGHTLY CLOUDY A Urine pH 7.0 Urine Specific [place] 1.017 Urine Ketones NEGATIVE Urine Nitrite NEGATIVE Urine Bilirubin NEGATIVE Urine Urobilinogen 1+ H Urine Leukocyte Esterase NEGATIVE Urine Microscopic RBC 15 H Urine Microscopic WBC 3 Urine Squamous Epithelial Cells FEW Urine Amorphous Crystals FEW A Urine Bacteria FEW A Urine Hemoglobin NEGATIVE Urine Glucose NEGATIVE Urine Total Protein NEGATIVE Medications Current Medications Albuterol (Proventil 0.083% (Neb)) 2.5 mg Q4H RESP THERAPY HHN Last administered on 02/23/19 13:30; Admin Dose 2.5 MG; Start 02/20/19 at 01:00 Aspirin (Aspirin) 81 mg DAILY GTB Last administered on 02/23/19 08:55; Admin Dose 81 MG; Start 02/20/19 at 09:00 Atorvastatin Calcium (Lipitor) 80 mg HS GTB Last administered on 02/22/19 21:08; Admin Dose 80 MG; Start 02/20/19 at 21:00 Carvedilol (Coreg) 12.5 mg BID GTB Last administered on 02/23/19 08:56; Admin Dose 12.5 MG; Start 02/20/19 at 09:00 Docusate Sodium (Colace Liquid Cup) 100 mg BID GTB Last administered on 02/22/19 10:00; Admin Dose 100 MG; Start 02/20/19 at 09:00 Bisacodyl (Dulcolax Supp) 10 mg DAILY PRN [place] CONSTIPATION; Start 02/19/19 at 22:00 Sodium Biphosphate/ Sodium Phosphate (Fleet Enema) 133 ml DAILY PRN [place] CONSTIPATION; Start 02/19/19 at 22:00 Lisinopril (Zestril) 10 mg DAILY GTB Last administered on 02/23/19at 08:57; Admin Dose 10 MG; Start 02/20/19 at 09:00 Magnesium Hydroxide (Milk Of Mag) 30 ml DAILY PRN GTB CONSTIPATION; Start 02/19/19 at 22:00 Polyethylene Glycol (Miralax) 17 gm DAILY GTB Last administered on 02/22/19at 10:05; Admin Dose 17 GM; Start 02/20/19 at 09:00 Nicotine (Nicoderm 7 Mg/ 24 Hr) 1 patch DAILY TRANSDERM Last administered on 02/23/19 08:57; Admin Dose 1 PATCH; Start 02/20/19 at 09:00 Famotidine (Pepcid) 20 mg BID GTB Last administered on 02/23/19 08:55; Admin Dose 20 MG; Start 02/20/19 at 09:00 Clopidogrel Bisulfate (plaVIX) 75 mg DAILY GTB Last administered on 02/23/19 08:55; Admin Dose 75 MG; Start 02/20/19 at 09:00 Senna (Senokot) 1 tab HS GTB Last administered on 02/21/19 20:14; Admin Dose 1 TAB; Start 02/20/19 at 21:00 Cyanocobalamin (Vitamin B12) 1,000 mcg DAILY GTB Last administered on 02/23/19 08:55; Admin Dose 1,000 MCG; Start 02/20/19 at 09:00 Cholecalciferol (Vitamin D) 2,000 unit DAILY GTB Last administered on 02/23/19 08:55; Admin Dose 2,000 UNIT; Start 02/20/19 at 09:00 Olanzapine (Zyprexa) 2.5 mg HS PRN GTB ANXIETY Last administered on 02/21/19 22:22; Admin Dose 2.5 MG; Start 02/19/19 at 22:00 Miscellaneous Information (Pending [facility] Order For Wound Care) This patient sandhu... PRN PRN XX WOUND CARE; Start 02/19/19 at 23:00 Miscellaneous Information 1 ea NOTE XX ; Start 02/21/19 at 14:30 Acetaminophen (Tylenol Tab) 1,000 mg Q6H PRN PO MILD PAIN(1-3)OR ELEVATED TEMP Last administered on 02/23/19at 18:46; Admin Dose 1,000 MG; Start 02/23/19 at 18:30 Assessment/Plan Hospital Course (Demo Recall) 1. 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 Continue physical therapy as outlined, optimization for peripheral arterial disease as already started with Plavix, Lipitor, Coreg and lisinopril and aspirin. Continue to monitor. 2. Recent Enterobacter pneumonia fully treated, required trach and PEG placement, completely decannulated now. 3. leucocytosis. Do chest x-rays as a baseline to make sure that no evidence of leukocytosis on admission. Trend. Check UA and chest x-ray. 4. History of hypertension, borderline at this time. Continue regular medications and monitor. 5. Coronary artery disease. secondary prevention. 6. Depression. The patient will benefit from psychiatrist and psychologist evaluation. We will see what resources reveal here in acute rehab unit. 7. leucocytosis- persistent. possible vre uti but asymptomatic. repeat ua and c&S. BALTAZAR UGALDE MD Feb 23, 2019 19:21
[2019-02-23 20:00] VITALS: BP 104/64; PULSE 70; RESP 18
[2019-02-23] MEDS: SENNA TAB GTB SCH (21:00)
[2019-02-23] MEDS: ATORVASTATIN 80 MG TAB GTB SCH (21:05)
[2019-02-24] MEDS: ALBUTEROL 0.083% (NEB) 2.5 MG/3 ML AMP HHN SCH ×6 (01:18→20:15)
[2019-02-24 02:00] VITALS: BP 115/69; PULSE 65; RESP 18
[2019-02-24 07:30] VITALS: BP 116/74; PULSE 74; RESP 20
[2019-02-24] MEDS: DOCUSATE SODIUM 10 MG/ML (10ML CUP) GTB SCH ×2 (09:00→20:38)
[2019-02-24] MEDS: LISINOPRIL 10 MG TAB GTB SCH (09:00)
[2019-02-24] MEDS: CHOLECALCIFEROL 2,000 UNIT CAP GTB SCH (09:43)
[2019-02-24] MEDS: CLOPIDOGREL 75 MG TAB GTB SCH (09:43)
[2019-02-24] MEDS: CYANOCOBALAMIN 500 MCG TAB GTB SCH (09:43)
[2019-02-24] MEDS: FAMOTIDINE 20 MG TAB GTB SCH ×2 (09:44→20:38)
[2019-02-24] MEDS: NICOTINE (7 MG/24 HR) PATCH TRANSDERM SCH (09:44)
[2019-02-24] MEDS: ASPIRIN 81 MG TAB GTB SCH (09:44)
[2019-02-24] MEDS: POLYETHYLENE GLYCOL 17 GM PACKET GTB SCH (09:45)
--- NOTE | 2019-02-24 10:22 | CONS ---
Consult Date/Type/Reason Admit Date/Time Feb 19, 2019 at 21:20 Date/Time of Note DATE: 02/24/19 TIME: 10:20 Subjective 63-year-old gentleman with past medical history of hypertension, hyperlipidemia, coronary artery disease. Patient admitted to [facility] on 12/20/2018 with left-sided weakness, noted to have acute infarct in the right MCA and ICA occlusion. The patient underwent thrombectomy and stent placement in the right carotid artery. The patient's hospital course was notable for vasogenic edema, aspiration pneumonia, dysphagia. Patient required intubation and tracheostomy, PEG placement. The patient stabilized and was able to be extubated and now is without any vent or trach. The patient has a left-sided hemiplegia with neglect. Patient transferred to the rehabilitation unit for acute therapy. Patient admits to being depressed, complaining of pain and complains of separation in his shoulder. He claims that his left Achilles tendon ruptured in the hospital, pain on the right side as a compensation for physical therapy, gets tired very quickly. The patient had pneumonia, was treated fully. He denies fevers, chills, nausea, vomiting, chest pain, shortness of breath. tolerates meds and therapies. a little lethargic today. denies dysuria. noted incontinence of urine PHYSICAL EXAMINATION: HEENT: Normocephalic. Pupils are reactive. NECK: Supple. HEART: Regular rate and rhythm. LUNGS: Clear to auscultation. ABDOMEN: Soft, nontender, nondistended. Bowel sounds present. ext: no clubbing, cyanosis, edema Objective Vitals Vital Signs Date Temp Pulse Resp B/P (MAP) Pulse Ox O2 O2 Flow FiO2 Time Delivery Rate 02/24/19 2.0 08:48 02/24/19 75 18 97 Nasal 05:55 Cannula 02/24/19 98.0 115/69 02:00 (84) 02/20/19 21 20:00 Intake and Output 02/23/19 02/23/19 02/24/19 1515:00 23:00 07:00 IntakeIntake Total 680 ml BalanceBalance 680 ml Results/Medications Result Diagram: 02/21/19 0622 02/20/19 0633 Results 24 hrs Laboratory Tests Test 02/23/19 15:30 Urine Color YELLOW Urine Clarity SLIGHTLY CLOUDY A Urine pH 7.0 Urine Specific [place] 1.017 Urine Ketones NEGATIVE Urine Nitrite NEGATIVE Urine Bilirubin NEGATIVE Urine Urobilinogen 1+ H Urine Leukocyte Esterase NEGATIVE Urine Microscopic RBC 15 H Urine Microscopic WBC 3 Urine Squamous Epithelial Cells FEW Urine Amorphous Crystals FEW A Urine Bacteria FEW A Urine Hemoglobin NEGATIVE Urine Glucose NEGATIVE Urine Total Protein NEGATIVE Medications Current Medications Albuterol (Proventil 0.083% (Neb)) 2.5 mg Q4H RESP THERAPY HHN Last administered on 02/24/19 05:54; Admin Dose 2.5 MG; Start 02/20/19 at 01:00 Aspirin (Aspirin) 81 mg DAILY GTB Last administered on 02/24/19 09:44; Admin Dose 81 MG; Start 02/20/19 at 09:00 Atorvastatin Calcium (Lipitor) 80 mg HS GTB Last administered on 02/23/19 21:05; Admin Dose 80 MG; Start 02/20/19 at 21:00 Carvedilol (Coreg) 12.5 mg BID GTB Last administered on 02/23/19 21:04; Admin Dose 12.5 MG; Start 02/20/19 at 09:00 Docusate Sodium (Colace Liquid Cup) 100 mg BID GTB Last administered on 02/23/19 21:09; Admin Dose 100 MG; Start 02/20/19 at 09:00 Bisacodyl (Dulcolax Supp) 10 mg DAILY PRN [place] CONSTIPATION; Start 02/19/19 at 22:00 Sodium Biphosphate/ Sodium Phosphate (Fleet Enema) 133 ml DAILY PRN [place] CONSTIPATION; Start 02/19/19 at 22:00 Lisinopril (Zestril) 10 mg DAILY GTB Last administered on 02/23/19at 08:57; Admin Dose 10 MG; Start 02/20/19 at 09:00 Magnesium Hydroxide (Milk Of Mag) 30 ml DAILY PRN GTB CONSTIPATION; Start 02/19/19 at 22:00 Polyethylene Glycol (Miralax) 17 gm DAILY GTB Last administered on 02/24/19 09:45; Admin Dose 17 GM; Start 02/20/19 at 09:00 Nicotine (Nicoderm 7 Mg/ 24 Hr) 1 patch DAILY TRANSDERM Last administered on 02/24/19 09:44; Admin Dose 1 PATCH; Start 02/20/19 at 09:00 Famotidine (Pepcid) 20 mg BID GTB Last administered on 02/24/19 09:44; Admin Dose 20 MG; Start 02/20/19 at 09:00 Clopidogrel Bisulfate (plaVIX) 75 mg DAILY GTB Last administered on 02/24/19 09:43; Admin Dose 75 MG; Start 02/20/19 at 09:00 Senna (Senokot) 1 tab HS GTB Last administered on 02/21/19 20:14; Admin Dose 1 TAB; Start 02/20/19 at 21:00 Cyanocobalamin (Vitamin B12) 1,000 mcg DAILY GTB Last administered on 02/24/19 09:43; Admin Dose 1,000 MCG; Start 02/20/19 at 09:00 Cholecalciferol (Vitamin D) 2,000 unit DAILY GTB Last administered on 02/24/19 09:43; Admin Dose 2,000 UNIT; Start 02/20/19 at 09:00 Olanzapine (Zyprexa) 2.5 mg HS PRN GTB ANXIETY Last administered on 02/21/19 22:22; Admin Dose 2.5 MG; Start 02/19/19 at 22:00 [facility] This patient sandhu... PRN PRN XX WOUND CARE; Start 02/19/19 at 23:00 Miscellaneous Information 1 ea NOTE XX ; Start 02/21/19 at 14:30 Acetaminophen (Tylenol Tab) 1,000 mg Q6H PRN PO MILD PAIN(1-3)OR ELEVATED TEMP Last administered on 02/23/19 18:46; Admin Dose 1,000 MG; Start 02/23/19 at 18:30 Assessment/Plan Hospital Course (Demo Recall) 1. 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 Continue physical therapy as outlined, optimization for peripheral arterial disease as already started with Plavix, Lipitor, Coreg and lisinopril and aspirin. Continue to monitor. 2. Recent Enterobacter pneumonia fully treated, required trach and PEG placement, completely decannulated now. 3. leucocytosis. Do chest x-rays as a baseline to make sure that no evidence of leukocytosis on admission. Trend. Check UA and chest x-ray. 4. History of hypertension, borderline at this time. Continue regular medications and monitor. 5. Coronary artery disease. secondary prevention. 6. Depression. The patient will benefit from psychiatrist and psychologist evaluation. 7. leucocytosis- persistent. possible vre uti but asymptomatic. repeat ua and c&S. 8. vre uti- poss comptaminat. recheck. id consulted. BALTAZAR UGALDE MD Feb 24, 2019 10:22
[2019-02-24] MEDS ORDERED: BARIUM SULFATE 135 ML (E-Z HD) PO ONE (10:32)
[2019-02-24 12:02] VITALS: BP 100/63; PULSE 68
[2019-02-24 14:00] VITALS: BP 114/69; PULSE 73; RESP 20
[2019-02-24] MEDS ORDERED: FOSFOMYCIN 3 GM PACKET PO ONE (17:00)
--- NOTE | 2019-02-24 17:49 | PN ---
Date/Time of Note Date/Time of Note DATE: 02/24/19 TIME: 17:47 Subjective No new complaints. Video results reviewed with Speech Therapy Objective Vital Signs Date Temp Pulse Resp B/P (MAP) Pulse Ox O2 O2 Flow FiO2 Time Delivery Rate 02/24/19 98.0 73 20 114/69 94 Nasal 2.0 14:00 (84) Cannula 02/20/19 21 20:00 Intake and Output 02/23/19 02/23/19 02/24/19 1515:00 23:00 07:00 IntakeIntake Total 680 ml BalanceBalance 680 ml Exam pulm-cta abd-soft dependent Results/Medications Result Diagram: 02/21/1962102/20/19 0633 Medications Current Medications Albuterol (Proventil 0.083% (Neb)) 2.5 mg Q4H RESP THERAPY HHN Last administered on 02/24/19at 13:33; Admin Dose 2.5 MG; Start 02/20/19 at 01:00 Aspirin (Aspirin) 81 mg DAILY GTB Last administered on 02/24/19at 09:44; Admin Dose 81 MG; Start 02/20/19 at 09:00 Atorvastatin Calcium (Lipitor) 80 mg HS GTB Last administered on 02/23/19 21:05; Admin Dose 80 MG; Start 02/20/19 at 21:00 Carvedilol (Coreg) 12.5 mg BID GTB Last administered on 02/23/19at 21:04; Admin Dose 12.5 MG; Start 02/20/19 at 09:00 Docusate Sodium (Colace Liquid Cup) 100 mg BID GTB Last administered on 02/23/19at 21:09; Admin Dose 100 MG; Start 02/20/19 at 09:00 Bisacodyl (Dulcolax Supp) 10 mg DAILY PRN [place] CONSTIPATION; Start 02/19/19 at 22:00 Sodium Biphosphate/ Sodium Phosphate (Fleet Enema) 133 ml DAILY PRN [place] CONSTIPATION; Start 02/19/19 at 22:00 Lisinopril (Zestril) 10 mg DAILY GTB Last administered on 02/23/19at 08:57; Admin Dose 10 MG; Start 02/20/19 at 09:00 Magnesium Hydroxide (Milk Of Mag) 30 ml DAILY PRN GTB CONSTIPATION; Start 02/19/19 at 22:00 Polyethylene Glycol (Miralax) 17 gm DAILY GTB Last administered on 02/24/19 0 9:45; Admin Dose 17 GM; Start 02/20/19 at 09:00 Nicotine (Nicoderm 7 Mg/ 24 Hr) 1 patch DAILY TRANSDERM Last administered on 02/24/19 09:44; Admin Dose 1 PATCH; Start 02/20/19 at 09:00 Famotidine (Pepcid) 20 mg BID GTB Last administered on 02/24/19 09:44; Admin Dose 20 MG; Start 02/20/19 at 09:00 Clopidogrel Bisulfate (plaVIX) 75 mg DAILY GTB Last administered on 02/24/19 09:43; Admin Dose 75 MG; Start 02/20/19 at 09:00 Senna (Senokot) 1 tab HS GTB Last administered on 02/21/19 20:14; Admin Dose 1 TAB; Start 02/20/19 at 21:00 Cyanocobalamin (Vitamin B12) 1,000 mcg DAILY GTB Last administered on 02/24/19 09:43; Admin Dose 1,000 MCG; Start 02/20/19 at 09:00 Cholecalciferol (Vitamin D) 2,000 unit DAILY GTB Last administered on 02/24/19 09:43; Admin Dose 2,000 UNIT; Start 02/20/19 at 09:00 Olanzapine (Zyprexa) 2.5 mg HS PRN GTB ANXIETY Last administered on 02/21/19 22:22; Admin Dose 2.5 MG; Start 02/19/19 at 22:00 Miscellaneous Information (Pending [facility] Order For Wound Care) This patient sandhu... 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 Continue rehab program, Dysphagia, status post PEG. Videofluro reviewed with ST, patient on nectar thick liquids Aspiration pneumonia, acute respiratory failure. Hyperlipidemia. Hypertension. s/p Sepsis, urinary tract infection. Gastritis. ZEV LIVE MD Feb 24, 2019 17:49
[2019-02-24 20:00] VITALS: BP 114/63; PULSE 78; RESP 18
[2019-02-24] MEDS: SENNA TAB GTB SCH (20:38)
[2019-02-24] MEDS: ATORVASTATIN 80 MG TAB GTB SCH (20:39)
--- NOTE | 2019-02-24 21:33 | CONS ---
DATE OF ADMISSION: 02/19/2019 DATE OF CONSULTATION: 02/24/2019 TYPE OF CONSULTATION: Infectious disease REASON FOR CONSULTATION: Antibiotic management. HISTORY OF PRESENT ILLNESS: Mike Lovett is an unfortunate 63-year-old male with numerous problems, who is being seen in [facility] for VRE UTI. PAST PROBLEMS INCLUDE: 1. Hypertension. 2. Hyperlipidemia. 3. Coronary artery disease. The patient was admitted to [facility] on 12/20/2018 with left-sided weakness and was noted to have an acute infarct in right MCA in with internal carotid artery occlusion. He underwent thrombectomy and stent placement in the right carotid artery. His hospital course was notable for va sogenic edema, aspiration pneumonia, dysphagia. He required intubation and tracheostomy and PEG plac ement. He was then stabilized and was able to be extubated. Now he is without any vent or tracheost sandi. The patient has left-sided hemiplegia with neglect. He was transferred to rehab for acute ther apy. He admits to being depressed. He complains of pain, complains of separation in his shoulder. He also states that his left Achilles tendon ruptured in the hospital. The patient is very weak and tired. He had pneumonia which was fully treated. PAST MEDICAL HISTORY: Operations as outlined. FAMILY HISTORY: Noncontributory. SOCIAL HISTORY: He does not smoke, drink, or abuse drugs. ALLERGIES: NONE TO PENICILLIN, SULFA, OR FOODS. MEDICATIONS: Per chart. REVIEW OF SYSTEMS: Noncontributory. PHYSICAL EXAMINATION: GENERAL: The patient is a well-developed, well-nourished male who is alert, responsive, in no acute distress. VITAL SIGNS: Stable. He is afebrile. SKIN: Without generalized rash. HEENT: Within normal limits. NECK: Supple. LYMPH NODES: None palpable. CHEST: Decreased breath sounds at the bases. HEART: Without murmur or gallop. ABDOMEN: Soft, nontender, without organosplenomegaly or masses. EXTREMITIES: Without cyanosis, clubbing, or edema. RECTAL AND GENITAL: Deferred. NEUROLOGIC: No focal neurological abnormalities. ANCILLARY LABORATORY DATA: His laboratory data shows VRE in the ER, sensitive to fosfomycin and line zolid. His chest x-ray shows some patchy infiltrates at the left lung base with potential small left pleural effusion, scattered atelectasis in the right lung, hypoinflated lungs with an elevated left hemidiaphragm. Modified barium swallow was done; thin via spoon penetrations and trial thin to cords in the laryngeal vestibule but eventually cleared, decreased control resulting in premature spillage and overflow into the paranasal sinuses. IMPRESSION AND PLAN: I think it is reasonable to give the patient 1 dose of fosfomycin 3 grams orall y. I will dictate my findings to Dr. Sam and to Dr. De Leon. Dictated By: LACI ZURITA MD, JD/JOLIE Conf#: [id number] DID#: [id number] CC: SUNITA DAVIDSON DO;*End*
[2019-02-25] MEDS: ALBUTEROL 0.083% (NEB) 2.5 MG/3 ML AMP HHN SCH ×6 (01:19→20:39)
[2019-02-25 02:44] VITALS: BP 113/74; PULSE 74; RESP 18
[2019-02-25 07:00] VITALS: BP 153/94; PULSE 80; RESP 18
[2019-02-25] MEDS: DOCUSATE SODIUM 10 MG/ML (10ML CUP) GTB SCH ×2 (09:00→21:00)
[2019-02-25] MEDS: CYANOCOBALAMIN 500 MCG TAB GTB SCH (09:26)
[2019-02-25] MEDS: POLYETHYLENE GLYCOL 17 GM PACKET GTB SCH (09:26)
[2019-02-25] MEDS: CHOLECALCIFEROL 2,000 UNIT CAP GTB SCH (09:27)
[2019-02-25] MEDS: CLOPIDOGREL 75 MG TAB GTB SCH (09:27)
[2019-02-25] MEDS: NICOTINE (7 MG/24 HR) PATCH TRANSDERM SCH (09:27)
[2019-02-25] MEDS: FAMOTIDINE 20 MG TAB GTB SCH ×2 (09:27→21:23)
[2019-02-25] MEDS: ASPIRIN 81 MG TAB GTB SCH (09:27)
[2019-02-25] MEDS: LISINOPRIL 10 MG TAB GTB SCH (09:28)
[2019-02-25] MEDS: ZYVOX 600 MG TAB PO SCH ×2 (13:07→21:23)
[2019-02-25 14:00] VITALS: BP 123/76; PULSE 68; RESP 18
--- NOTE | 2019-02-25 14:49 | CONS ---
DATE OF ADMISSION: 02/19/2019 DATE OF CONSULTATION: 02/25/2019 TYPE OF CONSULTATION: Pulmonary. REASON FOR CONSULTATION: Dyspnea and trach stoma site leak. HISTORY OF PRESENT ILLNESS: This is a 63-year-old gentleman with a history of CVA, respiratory failu re requiring tracheostomy, status post decannulation and subsequent transfer to acute rehab unit. He had had an acute right MCA and ICA occlusion, underwent thrombectomy with stent placement in the rig ht carotid artery. Significant neurological improvement and improvement in his tracheostomy stoma, h owever he still has a skin flap and small air leak. The patient was decannulated 3 weeks ago. In ad dition, speech therapy evaluation confirms ongoing mild dysphagia requiring modified meal. PAST MEDICAL HISTORY: As above. MEDICATIONS: Per chart. ALLERGIES: NONE. SOCIAL HISTORY: He is a current nonsmoker, no alcohol, no history of drug use. SYSTEMS REVIEW: A 12-point review of systems was negative other than that mentioned above. PHYSICAL EXAMINATION: GENERAL: Well-nourished, well-developed gentleman, comfortable at rest, no acute distress. VITAL SIGNS: Currently afebrile, pulse is 80, blood pressure 150/90, O2 saturation 96%, FIO2 of room air. NECK: Supple. No JVD or lymphadenopathy. CARDIAC: S1, S2, no added sounds or murmurs. CHEST: Diminished air entry bilaterally. ABDOMEN: Soft, nontender. No guarding or rebound. EXTREMITIES: No cyanosis, clubbing, or edema. NEUROLOGIC: Generalized weakness. LABORATORY DATA: White count 13.4, hemoglobin 13.5, platelets 328. Chemistry within normal limits. DIAGNOSTIC DATA: Chest x-ray had demonstrated patchy atelectasis, small left pleural effusion. IMPRESSION AND PLAN: 1. Status post respiratory failure with mild dysphagia. The patient will require continued speech t herapy recommendations and aspiration precautions. 2. Small air leak from trach stoma site with patent skin flap. I would suggest ENT evaluation. The patient probably needs cauterization of the skin flap. 3. Continue physical therapy. 4. Continue occupational therapy. 5. Deep vein thrombosis and gastrointestinal prophylaxis. Dictated By: REGINA KRAMER/JOLIE Conf#: [id number] DID#: [id number] CC: SUNITA DAVIDSON DO;*EndCC*
--- NOTE | 2019-02-25 15:12 | PSY ---
Date/Time of Note Date/Time of Note DATE: 02/25/19 TIME: 14:59 Psychiatric Subjective Eval Consent Pt consented to telemedicine: No Subjective Evaluation Patient location: inpatient Reason for consult: patient is a 63-year-old gentleman with past medical history of hypertensi History of present illness Patient is a [id number], male with past medical history of hypertension, hyperlipidemia, and coronary artery disease. [id number] evaluation, patient is tearful,reports feeling depressed, he reports increased anxiety, with fear of the unknown, he reports feeling hopeless but denies suicidal ideation and contracted for safety. Risk and benefits of antidepressant discussed and he verbalized understanding Hospitalization: other Allergies: Coded Allergies: No Known Allergies (Verified Allergy, Unknown, 02/19/19) Substance Abuse Substance abuse history: No Prior substance abuse treatmen: No Social History Marital status: DPA/Conservatorship: No Psychiatric Objective Eval Review of Systems: Review of Systems: Not Applicable Physical Examination: Physical Examination: Not Applicable Appetite: Decreased Energy: Decreased Interest: Decreased Mental Status Examination: Behavior: Cooperative Speech: Clear AFFECT: Flat Mood: Anxious Though Process: Linear Thought Content: Normal Laboratory Results Laboratory Tests Test 02/23/19 15:30 Urine Color YELLOW Urine Clarity SLIGHTLY CLOUDY Urine pH 7.0 Urine Specific [place] 1.017 Urine Ketones NEGATIVE mg/dL Urine Nitrite NEGATIVE mg/dL Urine Bilirubin NEGATIVE mg/dL Urine Urobilinogen 1+ mg/dL Urine Leukocyte Esterase NEGATIVE Guillaume/ul Urine Microscopic RBC 15 /HPF Urine Microscopic WBC 3 /HPF Urine Squamous Epithelial Cells FEW /HPF Urine Amorphous Crystals FEW /HPF Urine Bacteria FEW /HPF Urine Hemoglobin NEGATIVE mg/dL Urine Glucose NEGATIVE mg/dL Urine Total Protein NEGATIVE mg/dl Assessment and Plan Assessment/Diagnosis Diagnosis Major depressive disorder single episode without psychosis Recommendation/Plan Medication Management Lexapro 10 mg daily Multiple antipsychotics: No Discharge Disposition: Other Legal Status: Voluntary (Does not meet criteria for 5150 hold) EUGENIA MACKENZIE NP Feb 25, 2019 15:10
--- NOTE | 2019-02-25 15:46 | PN ---
Date/Time of Note Date/Time of Note DATE: 02/25/19 TIME: 15:42 Subjective no new complaints Objective Vital Signs Date Temp Pulse Resp B/P (MAP) Pulse Ox O2 O2 Flow FiO2 Time Delivery Rate 02/25/19 98.3 80 18 153/94 96 Room Air 07:00 (113) 02/25/19 2.0 02:44 Intake and Output 02/24/19 02/24/19 02/25/19 1515:00 23:00 07:00 IntakeIntake Total 440 ml 1410 ml 300 ml BalanceBalance 440 ml 1410 ml 300 ml Exam pulm-cta abd-soft dependent Results/Medications Result Diagram: 02/21/19 0622 Medications Current Medications Albuterol (Proventil 0.083% (Neb)) 2.5 mg Q4H RESP THERAPY HHN Last administered on 02/25/19at 01:19; Admin Dose 2.5 MG; Start 02/20/19 at 01:00 Aspirin (Aspirin) 81 mg DAILY GTB Last administered on 02/25/19at 09:27; Admin Dose 81 MG; Start 02/20/19 at 09:00 Atorvastatin Calcium (Lipitor) 80 mg HS GTB Last administered on 02/24/19at 2 0:39; Admin Dose 80 MG; Start 02/20/19 at 21:00 Carvedilol (Coreg) 12.5 mg BID GTB Last administered on 02/25/19at 09:28; Admin Dose 12.5 MG; Start 02/20/19 at 09:00 Docusate Sodium (Colace Liquid Cup) 100 mg BID GTB Last administered on 02/24/19at 20:38; Admin Dose 100 MG; Start 02/20/19 at 09:00 Bisacodyl (Dulcolax Supp) 10 mg DAILY PRN [place] CONSTIPATION; Start 02/19/19 at 22:00 Sodium Biphosphate/ Sodium Phosphate (Fleet Enema) 133 ml DAILY PRN [place] CONSTIPATION; Start 02/19/19 at 22:00 Lisinopril (Zestril) 10 mg DAILY GTB Last administered on 02/25/19at 09:28; Admin Dose 10 MG; Start 02/20/19 at 09:00 Magnesium Hydroxide (Milk Of Mag) 30 ml DAILY PRN GTB CONSTIPATION; Start 02/19/19 at 22:00 Polyethylene Glycol (Miralax) 17 gm DAILY GTB Last administered on 02/25/19 09:26; Admin Dose 17 GM; Start 02/20/19 at 09:00 Nicotine (Nicoderm 7 Mg/ 24 Hr) 1 patch DAILY TRANSDERM Last administered on 02/25/19 09:27; Admin Dose 1 PATCH; Start 02/20/19 at 09:00 Famotidine (Pepcid) 20 mg BID GTB Last administered on 02/25/19 09:27; Admin Dose 20 MG; Start 02/20/19 at 09:00 Clopidogrel Bisulfate (plaVIX) 75 mg DAILY GTB Last administered on 02/25/19 09:27; Admin Dose 75 MG; Start 02/20/19 at 09:00 Senna (Senokot) 1 tab HS GTB Last administered on 02/24/19 20:38; Admin Dose 1 TAB; Start 02/20/19 at 21:00 Cyanocobalamin (Vitamin B12) 1,000 mcg DAILY GTB Last administered on 02/25/19 09:26; Admin Dose 1,000 MCG; Start 02/20/19 at 09:00 Cholecalciferol (Vitamin D) 2,000 unit DAILY GTB Last administered on 02/25/19 09:27; Admin Dose 2,000 UNIT; Start 02/20/19 at 09:00 Olanzapine (Zyprexa) 2.5 mg HS PRN GTB ANXIETY Last administered on 02/21/19 22:22; Admin Dose 2.5 MG; Start 02/19/19 at 22:00 Miscellaneous Information (Pending [facility] Order For Wound Care) This patient sandhu ... 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 Patient has not made significant functional gains. Anticipate patient to return to lower level of care Dysphagia,- continue tube feeds and nectar thick liquids ID- f/b Dr Paez s/p aspiration pneumonia, Sepsis, urinary tract infection. Pulm- s/pacute respiratory failure, patient with small air leak at old trach site, will f/u with ENT at [facility] Hyperlipidemia. Hypertension. Gastritis. ZEV LIVE MD Feb 25, 2019 15:46
--- NOTE | 2019-02-25 16:18 | PN ---
DATE: 02/25/2019 SUBJECTIVE: The patient is alert, looks comfortable. Denies pain. No fevers overnight. MICROBIOLOGY: Urine culture persistently growing VRE resistant to fosfomycin. PHYSICAL EXAMINATION: GENERAL: This is well-developed, elderly man who is alert, in no distress. HEENT: Head atraumatic, normocephalic. NECK: Supple. CHEST: Rise symmetrical. Breath sounds clear. HEART: S1, S2. ABDOMEN: Soft, bowel sounds present. EXTREMITIES: Without cyanosis. ASSESSMENT: 1. Vancomycin-resistant Enterococcus urinary tract infection. 2. Hypertension. 3. Coronary artery disease. 4. History of acute UT, status post cardiac stent with thrombectomy. PLAN: The patient was given fosfomycin dose; however, repeat cx was resistant to it. He was started on Zyvox, which we will continue. Dictated By: TOÑO RDZ APARTMENT COMMUNITY MANAGER for LACI ZURITA MD NI/NTS Conf#: [id number] DID#: [id number] CC: SUNITA DAVIDSON DO;*EndCC* MTDD
[2019-02-25 20:00] VITALS: BP 130/69; PULSE 72; RESP 18
[2019-02-25] MEDS: SENNA TAB GTB SCH (21:00)
[2019-02-25] MEDS: ATORVASTATIN 80 MG TAB GTB SCH (21:23)
[2019-02-26] MEDS: ALBUTEROL 0.083% (NEB) 2.5 MG/3 ML AMP HHN SCH ×6 (01:00→20:18)
[2019-02-26 02:00] VITALS: BP 108/64; PULSE 67; RESP 18
[2019-02-26 07:00] VITALS: BP 97/55; PULSE 67; RESP 18
[2019-02-26] MEDS: NICOTINE (7 MG/24 HR) PATCH TRANSDERM SCH (08:28)
[2019-02-26] MEDS: CYANOCOBALAMIN 500 MCG TAB GTB SCH (08:29)
[2019-02-26] MEDS: POLYETHYLENE GLYCOL 17 GM PACKET GTB SCH (08:29)
[2019-02-26] MEDS: FAMOTIDINE 20 MG TAB GTB SCH ×2 (08:29→21:23)
[2019-02-26] MEDS: DOCUSATE SODIUM 10 MG/ML (10ML CUP) GTB SCH ×2 (08:29→21:00)
[2019-02-26] MEDS: ASPIRIN 81 MG TAB GTB SCH (08:29)
[2019-02-26] MEDS: CHOLECALCIFEROL 2,000 UNIT CAP GTB SCH (08:29)
[2019-02-26] MEDS: CLOPIDOGREL 75 MG TAB GTB SCH (08:32)
[2019-02-26] MEDS: ZYVOX 600 MG TAB PO SCH ×2 (08:32→21:19)
[2019-02-26] MEDS: LISINOPRIL 10 MG TAB GTB SCH (08:33)
--- NOTE | 2019-02-26 09:19 | CONS ---
Consult Date/Type/Reason Admit Date/Time Feb 19, 2019 at 21:20 Date/Time of Note DATE: 02/25/19 TIME: 09:16 Subjective 63-year-old gentleman with past medical history of hypertension, hyperlipidemia, coronary artery disease. Patient admitted to [facility] on 12/20/2018 with left-sided weakness, noted to have acute infarct in the right MCA and ICA occlusion. The patient underwent thrombectomy and stent placement in the right carotid artery. The patient's hospital course was notable for vasogenic edema, aspiration pneumonia, dysphagia. Patient required intubation and tracheostomy, PEG placement. The patient stabilized and was able to be extubated and now is without any vent or trach. The patient has a left-sided hemiplegia with neglect. Patient transferred to the rehabilitation unit for acute therapy. Patient admits to being depressed, complaining of pain and complains of separation in his shoulder. He claims that his left Achilles tendon ruptured in the hospital, pain on the right side as a compensation for physical therapy, gets tired very quickly. The patient had pneumonia, was treated fully. He denies fevers, chills, nausea, vomiting, chest pain, shortness of breath. tolerates meds and therapies. denies dysuria. noted mucopurulent drainage around previous trach site. PHYSICAL EXAMINATION: HEENT: Normocephalic. Pupils are reactive. NECK: Supple. HEART: Regular rate and rhythm. LUNGS: Clear to auscultation. ABDOMEN: Soft, nontender, nondistended. Bowel sounds present. ext: no clubbing, cyanosis, edema Objective Vitals Vital Signs Date Temp Pulse Resp B/P (MAP) Pulse Ox O2 O2 Flow FiO2 Time Delivery Rate 02/25/19 Nasal 2.0 08:00 Cannula 02/25/19 72 20 95 07:59 02/25/19 98.0 108/64 02:00 (79) Assessment/Plan Hospital Course (Demo Recall) 1. 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 Continue physical therapy as outlined, optimization for peripheral arterial disease as already started with Plavix, Lipitor, Coreg and lisinopril and aspirin. Continue to monitor. 2. Recent Enterobacter pneumonia fully treated, required trach and PEG placement, completely decannulated now. 3. leucocytosis. Do chest x-rays as a baseline to make sure that no evidence of leukocytosis on admission. Trend. id fu. 4. History of hypertension, borderline at this time. Continue regular medications and monitor. 5. Coronary artery disease. secondary prevention. 6. Depression. The patient will benefit from psychiatrist and psychologist evaluation. 7. leucocytosis- persistent. possible vre uti but asymptomatic. repeat ua and c&S. 8. vre uti- poss comptaminat. recheck. id consulted. zyvox started. BALTAZAR UGALDE MD Feb 26, 2019 09:19
--- NOTE | 2019-02-26 09:21 | CONS ---
Consult Date/Type/Reason Admit Date/Time Feb 19, 2019 at 21:20 Date/Time of Note DATE: 02/26/19 TIME: 09:19 Subjective 63-year-old gentleman with past medical history of hypertension, hyperlipidemia, coronary artery disease. Patient admitted to [facility] on 12/20/2018 with left-sided weakness, noted to have acute infarct in the right MCA and ICA occlusion. The patient underwent thrombectomy and stent placement in the right carotid artery. The patient's hospital course was notable for vasogenic edema, aspiration pneumonia, dysphagia. Patient required intubation and tracheostomy, PEG placement. The patient stabilized and was able to be extubated and now is without any vent or trach. The patient has a left-sided hemiplegia with neglect. Patient transferred to the rehabilitation unit for acute therapy. Patient admits to being depressed, complaining of pain and complains of separation in his shoulder. He claims that his left Achilles tendon ruptured in the hospital, pain on the right side as a compensation for physical therapy, gets tired very quickly. The patient had pneumonia, was treated fully. He denies fevers, chills, nausea, vomiting, chest pain, shortness of breath. tolerates meds and therapies. dw ent. will try to visit but may need to be fu as outpatient. PHYSICAL EXAMINATION: HEENT: Normocephalic. Pupils are reactive. NECK: Supple. HEART: Regular rate and rhythm. LUNGS: Clear to auscultation. ABDOMEN: Soft, nontender, nondistended. Bowel sounds present. ext: no clubbing, cyanosis, edema Objective Vitals Vital Signs Date Temp Pulse Resp B/P (MAP) Pulse Ox O2 O2 Flow FiO2 Time Delivery Rate 02/26/19 Nasal 2.0 08:00 Cannula 02/26/19 72 20 95 07:59 02/26/19 98.0 108/64 02:00 (79) Intake and Output 02/25/19 02/25/19 02/26/19 1515:00 23:00 07:00 IntakeIntake Total 2210 ml 400 ml OutputOutput Total 600 ml BalanceBalance 1610 ml 400 ml Results/Medications Medications Current Medications Albuterol (Proventil 0.083% (Neb)) 2.5 mg Q4H RESP THERAPY HHN Last administered on 02/26/19at 07:58; Admin Dose 2.5 MG; Start 02/20/19 at 01:00 Aspirin (Aspirin) 81 mg DAILY GTB Last administered on 02/26/19 08:29; Admin Dose 81 MG; Start 02/20/19 at 09:00 Atorvastatin Calcium (Lipitor) 80 mg HS GTB Last administered on 02/25/19 21:23; Admin Dose 80 MG; Start 02/20/19 at 21:00 Carvedilol (Coreg) 12.5 mg BID GTB Last administered on 02/25/19 21:23; Admin Dose 12.5 MG; Start 02/20/19 at 09:00 Docusate Sodium (Colace Liquid Cup) 100 mg BID GTB Last administered on 02/26/19 08:29; Admin Dose 100 MG; Start 02/20/19 at 09:00 Bisacodyl (Dulcolax Supp) 10 mg DAILY PRN [place] CONSTIPATION; Start 02/19/19 at 22:00 Sodium Biphosphate/ Sodium Phosphate (Fleet Enema) 133 ml DAILY PRN [place] CONSTIPATION; Start 02/19/19 at 22:00 Lisinopril (Zestril) 10 mg DAILY GTB Last administered on 02/25/19 09:28; Admin Dose 10 MG; Start 02/20/19 at 09:00 Magnesium Hydroxide (Milk Of Mag) 30 ml DAILY PRN GTB CONSTIPATION; Start 02/19/19 at 22:00 Polyethylene Glycol (Miralax) 17 gm DAILY GTB Last administered on 02/26/19 08:29; Admin Dose 17 GM; Start 02/20/19 at 09:00 Nicotine (Nicoderm 7 Mg/ 24 Hr) 1 patch DAILY TRANSDERM Last administered on 02/26/19 08:28; Admin Dose 1 PATCH; Start 02/20/19 at 09:00 Famotidine (Pepcid) 20 mg BID GTB Last administered on 02/26/19 08:29; Admin Dose 20 MG; Start 02/20/19 at 09:00 Clopidogrel Bisulfate (plaVIX) 75 mg DAILY GTB Last administered on 02/26/19 08:32; Admin Dose 75 MG; Start 02/20/19 at 09:00 Senna (Senokot) 1 tab HS GTB Last administered on 02/24/19 20:38; Admin Dose 1 TAB; Start 02/20/19 at 21:00 Cyanocobalamin (Vitamin B12) 1,000 mcg DAILY GTB Last administered on 02/26/19 08:29; Admin Dose 1,000 MCG; Start 02/20/19 at 09:00 Cholecalciferol (Vitamin D) 2,000 unit DAILY GTB Last administered on 02/26/19 08:29; Admin Dose 2,000 UNIT; Start 02/20/19 at 09:00 Olanzapine (Zyprexa) 2.5 mg HS PRN GTB ANXIETY Last administered on 02/21/19at 22:22; Admin Dose 2.5 MG; Start 02/19/19 at 22:00 Miscellaneous Information (Pending [facility] Order For Wound Care) This patient sandhu... PRN PRN XX WOUND CARE; Start 02/19/19 at 23:00 Miscellaneous Information 1 ea NOTE XX ; Start 02/21/19 at 14:30 Acetaminophen (Tylenol Tab) 1,000 mg Q6H PRN PO MILD PAIN(1-3)OR ELEVATED TEMP Last administered on 02/23/19at 18:46; Admin Dose 1,000 MG; Start 02/23/19 at 1 8:30 Linezolid (Zyvox) 600 mg BID PO Last administered on 02/26/19 08:32; Admin Dose 600 MG; Start 02/25/19 at 12:30 Assessment/Plan Hospital Course (Demo Recall) 1. 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 Continue physical therapy as outlined, optimization for peripheral arterial disease as already started with Plavix, Lipitor, Coreg and lisinopril and aspirin. Continue to monitor. 2. Recent Enterobacter pneumonia fully treated, required trach and PEG placement, completely decannulated now. 3. leucocytosis. Do chest x-rays as a baseline to make sure that no evidence of leukocytosis on admission. Trend. id fu. 4. History of hypertension, borderline at this time. Continue regular medications and monitor. 5. Coronary artery disease. secondary prevention. 6. Depression. The patient will benefit from psychiatrist and psychologist evaluation. 7. leucocytosis- persistent. possible vre uti but asymptomatic. repeat ua and c&S. 8. vre uti- poss comptaminat. recheck. id consulted. zyvox started. 9. drainage from previous trach site. - ent consulted. trying to arrange. BALTAZAR UGALDE MD Feb 26, 2019 09:21
--- NOTE | 2019-02-26 11:31 | CONS ---
Assessment/Plan Assessment/Plan Hospital Course (Demo Recall) SUBJECTIVE: No acute events, looks comfortable. MICROBIOLOGY: Repeat Urine culture + VRE resistant to fosfomycin. Abx: Zyvox PHYSICAL EXAMINATION: GENERAL: This is well-developed, elderly man who is alert, in no distress. HEENT: Head atraumatic, normocephalic. NECK: Supple. CHEST: Rise symmetrical. Breath sounds clear. HEART: S1, S2. ABDOMEN: Soft, bowel sounds present. EXTREMITIES: Without cyanosis. ASSESSMENT: 1. Vancomycin-resistant Enterococcus urinary tract infection. 2. Hypertension. 3. Coronary artery disease. 4. History of acute TX, status post cardiac stent with thrombectomy. PLAN: Stable, continue abx Consultation Date/Type/Reason Admit Date/Time Feb 19, 2019 at 21:20 Initial Consult Date Type of Consult id Date/Time of Note DATE: 02/26/19 TIME: 11:30 Exam/Review of Systems Exam Vitals Vital Signs Date Temp Pulse Resp B/P (MAP) Pulse Ox O2 O2 Flow FiO2 Time Delivery Rate 02/26/19 Nasal 2.0 08:00 Cannula 02/26/19 72 20 95 07:59 02/26/19 98.1 97/55 (69) 07:00 Intake and Output 02/25/19 02/25/19 02/26/19 1515:00 23:00 07:00 IntakeIntake Total 2210 ml 400 ml OutputOutput Total 600 ml BalanceBalance 1610 ml 400 ml Medications Medication Current Medications Albuterol (Proventil 0.083% (Neb)) 2.5 mg Q4H RESP THERAPY HHN Last administer ed on 02/26/19at 07:58; Admin Dose 2.5 MG; Start 02/20/19 at 01:00 Aspirin (Aspirin) 81 mg DAILY GTB Last administered on 02/26/19at 08:29; Admin Dose 81 MG; Start 02/20/19 at 09:00 Atorvastatin Calcium (Lipitor) 80 mg HS GTB Last administered on 02/25/19at 21:23; Admin Dose 80 MG; Start 02/20/19 at 21:00 Carvedilol (Coreg) 12.5 mg BID GTB Last administered on 02/25/19at 21:23; Admin Dose 12.5 MG; Start 02/20/19 at 09:00 Docusate Sodium (Colace Liquid Cup) 100 mg BID GTB Last administered on 02/26/19 08:29; Admin Dose 100 MG; Start 02/20/19 at 09:00 Bisacodyl (Dulcolax Supp) 10 mg DAILY PRN [place] CONSTIPATION; Start 02/19/19 at 22:00 Sodium Biphosphate/ Sodium Phosphate (Fleet Enema) 133 ml DAILY PRN LA CONSTIPATION; Start 02/19/19 at 22:00 Lisinopril (Zestril) 10 mg DAILY GTB Last administered on 02/25/19 09:28; Admin Dose 10 MG; Start 02/20/19 at 09:00 Magnesium Hydroxide (Milk Of Mag) 30 ml DAILY PRN GTB CONSTIPATION; Start 02/19/19 at 22:00 Polyethylene Glycol (Miralax) 17 gm DAILY GTB Last administered on 02/26/19 08:29; Admin Dose 17 GM; Start 02/20/19 at 09:00 Nicotine (Nicoderm 7 Mg/ 24 Hr) 1 patch DAILY TRANSDERM Last administered on 02/26/19 08:28; Admin Dose 1 PATCH; Start 02/20/19 at 09:00 Famotidine (Pepcid) 20 mg BID GTB Last administered on 02/26/19 08:29; Admin Dose 20 MG; Start 02/20/19 at 09:00 Clopidogrel Bisulfate (plaVIX) 75 mg DAILY GTB Last administered on 02/26/19 08:32; Admin Dose 75 MG; Start 02/20/19 at 09:00 Senna (Senokot) 1 tab HS GTB Last administered on 02/24/19 20:38; Admin Dose 1 TAB; Start 02/20/19 at 21:00 Cyanocobalamin (Vitamin B12) 1,000 mcg DAILY GTB Last administered on 02/26/19 08:29; Admin Dose 1,000 MCG; Start 02/20/19 at 09:00 Cholecalciferol (Vitamin D) 2,000 unit DAILY GTB Last administered on 02/26/19 08:29; Admin Dose 2,000 UNIT; Start 02/20/19 at 09:00 Olanzapine (Zyprexa) 2.5 mg HS PRN GTB ANXIETY Last administered on 02/21/19 22:22; Admin Dose 2.5 MG; Start 02/19/19 at 22:00 Miscellaneous Information (Pending [facility] Order For Wound Care) This patient sandhu... PRN PRN XX WOUND CARE; Start 02/19/19 at 23:00 Miscellaneous Information 1 ea NOTE XX ; Start 02/21/19 at 14:30 Acetaminophen (Tylenol Tab) 1,000 mg Q6H PRN PO MILD PAIN(1-3)OR ELEVATED TEMP Last administered on 02/23/19at 18:46; Admin Dose 1,000 MG; Start 02/23/19 at 18:30 Linezolid (Zyvox) 600 mg BID PO Last administered on 02/26/19at 08:32; Admin Dose 600 MG; Start 02/25/19 at 12:30 TOÑO RDZ NP Feb 26, 2019 11:31
[2019-02-26 14:00] VITALS: BP 111/66; PULSE 77; RESP 18
--- NOTE | 2019-02-26 15:28 | PN ---
Date/Time of Note Date/Time of Note DATE: 02/26/19 TIME: 15:26 Subjective No new complaints Objective Vital Signs Date Temp Pulse Resp B/P (MAP) Pulse Ox O2 O2 Flow FiO2 Time Delivery Rate 02/26/19 Nasal 2.0 08:00 Cannula 02/26/19 72 20 95 07:59 02/26/19 98.1 97/55 (69) 07:00 Intake and Output 02/25/19 02/25/19 02/26/19 1515:00 23:00 07:00 IntakeIntake Total 2210 ml 400 ml OutputOutput Total 600 ml BalanceBalance 1610 ml 400 ml Exam pulm-cta dependent transfer Results/Medications Medications Current Medications Albuterol (Proventil 0.083% (Neb)) 2.5 mg Q4H RESP THERAPY HHN Last administered on 02/26/19at 07:58; Admin Dose 2.5 MG; Start 02/20/19 at 01:00 Aspirin (Aspirin) 81 mg DAILY GTB Last administered on 02/26/19 08:29; Admin Dose 81 MG; Start 02/20/19 at 09:00 Atorvastatin Calcium (Lipitor) 80 mg HS GTB Last administered on 02/25/19 21:23; Admin Dose 80 MG; Start 02/20/19 at 21:00 Carvedilol (Coreg) 12.5 mg BID GTB Last administered on 02/25/19 21:23; Admin Dose 12.5 MG; Start 02/20/19 at 09:00 Docusate Sodium (Colace Liquid Cup) 100 mg BID GTB Last administered on 02/26/19 08:29; Admin Dose 100 MG; Start 02/20/19 at 09:00 Bisacodyl (Dulcolax Supp) 10 mg DAILY PRN [place] CONSTIPATION; Start 02/19/19 at 22:00 Sodium Biphosphate/ Sodium Phosphate (Fleet Enema) 133 ml DAILY PRN PA CONSTIPATION; Start 02/19/19 at 22:00 Lisinopril (Zestril) 10 mg DAILY GTB Last administered on 02/25/19 09:28; Admin Dose 10 MG; Start 02/20/19 at 09:00 Magnesium Hydroxide (Milk Of Mag) 30 ml DAILY PRN GTB CONSTIPATION; Start 02/19/19 at 22:00 Polyethylene Glycol (Miralax) 17 gm DAILY GTB Last administered on 02/26/19 08:29; Admin Dose 17 GM; Start 02/20/19 at 09:00 Nicotine (Nicoderm 7 Mg/ 24 Hr) 1 patch DAILY TRANSDERM Last administered on 02/26/19 08:28; Admin Dose 1 PATCH; Start 02/20/19 at 09:00 Famotidine (Pepcid) 20 mg BID GTB Last administered on 02/26/19 08:29; Admin Dose 20 MG; Start 02/20/19 at 09:00 Clopidogrel Bisulfate (plaVIX) 75 mg DAILY GTB Last administered on 02/26/19 08:32; Admin Dose 75 MG; Start 02/20/19 at 09:00 Senna (Senokot) 1 tab HS GTB Last administered on 02/24/19 20:38; Admin Dose 1 TAB; Start 02/20/19 at 21:00 Cyanocobalamin (Vitamin B12) 1,000 mcg DAILY GTB Last administered on 02/26/19 08:29; Admin Dose 1,000 MCG; Start 02/20/19 at 09:00 Cholecalciferol (Vitamin D) 2,000 unit DAILY GTB Last administered on 02/26/19 08:29; Admin Dose 2,000 UNIT; Start 02/20/19 at 09:00 Olanzapine (Zyprexa) 2.5 mg HS PRN GTB ANXIETY Last administered on 02/21/19 22:22; Admin Dose 2.5 MG; Start 02/19/19 at 22:00 Miscellaneous Information (Pending [facility] Order For Wound Care) This patient sandhu... 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 Patient with limited functional gains. SW working on dc to lower level of care Dysphagia,- continue tube feeds and nectar thick liquids ID- f/b Dr Paez s/p aspiration pneumonia, Sepsis, urinary tract infection. Pulm- s/p acute respiratory failure, patient with small air leak at old trach site, will f/u with ENT at SNF Hyperlipidemia. Hypertension. Gastritis. ZEV LIVE MD Feb 26, 2019 15:28
[2019-02-26 20:51] VITALS: BP 147/78; PULSE 82; RESP 18
[2019-02-26] MEDS: SENNA TAB GTB SCH (21:00)
--- NOTE | 2019-02-26 21:11 | CONS ---
Assessment/Plan Assessment/Plan Assessment/Plan (Daily) 63-year-old male with history of tracheotomy who is now decannulated. He has been having some air leak from the tracheotomy site, if present this is quite mild at this time. There is very minimal granulation tissue. The wound overall is almost 99% healed and looks to be in excellent condition. I advised local wound care with bacitracin ointment or similar to be applied twice daily to the wound until it fully heals. The patient may follow with me as an outpatient in approximately 1 to 2 weeks and if the wound is not fully healed we can certainly consider additional interventions. Consultation Date/Type/Reason Admit Date/Time Feb 19, 2019 at 21:20 Type of Consult Otolaryngology Reason for Consultation Tracheostomy decannulation trouble Date/Time of Note DATE: 02/26/19 TIME: 21:03 Hx of Present Illness 63-year-old gentleman with past medical history of hypertension, hyperlipidemia, coronary artery disease. Patient admitted to [facility] on 12/20/2018 with left-sided weakness, noted to have acute infarct in the right MCA and ICA occlusion. The patient underwent thrombectomy and stent placement in the right carotid artery. The patient's hospital course was notable for vasogenic edema, aspiration pneumonia, dysphagia. Patient required intubation and tracheostomy, PEG placement. The patient stabilized and was able to be extubated and now is without any vent or trach. The patient has a left-sided hemiplegia with neglect. Patient transferred to the rehabilitation unit for acute therapy. Otolaryngology evaluation was requested due to air leak from previous tracheostomy site. Patient reports he is doing well without neck pain. Consultation - [facility] Otolaryngology-Head and Neck Surgery REVIEW OF SYSTEMS: The patient was asked and responded to a 14 point review of systems regarding constitutional symptoms, eye symptoms, ears, nose, mouth, throat symptoms, cardiovascular symptoms, respiratory symptoms, gastrointestinal symptoms, genitourinary symptoms, musculoskeletal symptoms, integumentary symptoms, neurological symptoms, psychiatric symptoms, endocrine symptoms, hematologic/lymphatic symptoms, and allergic/ immunologic symptoms. Pertinent positive and negative factors are listed in the HPI. Past Medical History 1. 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 2. Recent Enterobacter pneumonia fully treated, required trach and PEG placement, completely decannulated now. 3. leucocytosis. 4. History of hypertension, borderline at this time. 5. Coronary artery disease. 6. Depression. T 7. vre uti Medications Current Medications Albuterol (Proventil 0.083% (Neb)) 2.5 mg Q4H RESP THERAPY HHN Last administered on 02/26/19 20:18; Admin Dose 2.5 MG; Start 02/20/19 at 01:00 Aspirin (Aspirin) 81 mg DAILY GTB Last administered on 02/26/19 08:29; Admin Dose 81 MG; Start 02/20/19 at 09:00 Atorvastatin Calcium (Lipitor) 80 mg HS GTB Last administered on 02/25/19 21:23; Admin Dose 80 MG; Start 02/20/19 at 21:00 Carvedilol (Coreg) 12.5 mg BID GTB Last administered on 02/25/19 21:23; Admin Dose 12.5 MG; Start 02/20/19 at 09:00 Docusate Sodium (Colace Liquid Cup) 100 mg BID GTB Last administered on 02/26/19 08:29; Admin Dose 100 MG; Start 02/20/19 at 09:00 Bisacodyl (Dulcolax Supp) 10 mg DAILY PRN PA CONSTIPATION; Start 02/19/19 at 22:00 Sodium Biphosphate/ Sodium Phosphate (Fleet Enema) 133 ml DAILY PRN PA CONSTIPATION; Start 02/19/19 at 22:00 Lisinopril (Zestril) 10 mg DAILY GTB Last administered on 02/25/19 09:28; Admin Dose 10 MG; Start 02/20/19 at 09:00 Magnesium Hydroxide (Milk Of Mag) 30 ml DAILY PRN GTB CONSTIPATION; Start 02/19/19 at 22:00 Polyethylene Glycol (Miralax) 17 gm DAILY GTB Last administered on 02/26/19 08:29; Admin Dose 17 GM; Start 02/20/19 at 09:00 Nicotine (Nicoderm 7 Mg/ 24 Hr) 1 patch DAILY TRANSDERM Last administered on 02/26/19 08:28; Admin Dose 1 PATCH; Start 02/20/19 at 09:00 Famotidine (Pepcid) 20 mg BID GTB Last administered on 02/26/19 08:29; Admin Dose 20 MG; Start 02/20/19 at 09:00 Clopidogrel Bisulfate (plaVIX) 75 mg DAILY GTB Last administered on 02/26/19 08:32; Admin Dose 75 MG; Start 02/20/19 at 09:00 Senna (Senokot) 1 tab HS GTB Last administered on 02/24/19at 20:38; Admin Dose 1 TAB; Start 02/20/19 at 21:00 Cyanocobalamin (Vitamin B12) 1,000 mcg DAILY GTB Last administered on 02/26/19 08:29; Admin Dose 1,000 MCG; Start 02/20/19 at 09:00 Cholecalciferol (Vitamin D) 2,000 unit DAILY GTB Last administered on 02/26/19 08:29; Admin Dose 2,000 UNIT; Start 02/20/19 at 09:00 Olanzapine (Zyprexa) 2.5 mg HS PRN GTB ANXIETY Last administered on 02/21/19 22:22; Admin Dose 2.5 MG; Start 02/19/19 at 22:00 Miscellaneous Information (Pending [facility] Order For Wound Care) This patient sandhu... PRN PRN XX WOUND CARE; Start 02/19/19 at 23:00 Miscellaneous Information 1 ea NOTE XX ; Start 02/21/19 at 14:30 Acetaminophen (Tylenol Tab) 1,000 mg Q6H PRN PO MILD PAIN(1-3)OR ELEVATED TEMP Last administered on 02/23/19at 18:46; Admin Dose 1,000 MG; Start 02/23/19 at 18:30 Linezolid (Zyvox) 600 mg BID PO Last administered on 02/26/19 08:32; Admin Dose 600 MG; Start 02/25/19 at 12:30 Allergies: Coded Allergies: No Known Allergies (Verified Allergy, Unknown, 02/19/19) Past Surgical History See above Social History Smoking Status: Current every day smoker Exam/Review of Systems Exam Vitals Vital Signs Date Temp Pulse Resp B/P (MAP) Pulse Ox O2 O2 Flow FiO2 Time Delivery Rate 02/26/19 98.1 82 18 147/78 98 20:51 (101) 02/26/19 Nasal 2.0 20:20 Cannula Intake and Output 02/25/19 02/25/19 02/26/19 1414:59 22:59 06:59 IntakeIntake Total 2210 ml 400 ml OutputOutput Total 600 ml BalanceBalance 1610 ml 400 ml Exam PHYSICAL EXAM: The patient underwent a physical examination as described below. The pertinent positive and negative findings are summarized after the description of the examination. Constitutional: The patient's developmental and nutritional status were assessed. The patient's voice quality was assessed. Head and Face: The head and face were inspected for deformities. The salivary glands were palpated. Facial strength was assessed bilaterally. Eyes: Extraocular movements and primary gaze alignment were assessed. Ears, Nose, Mouth & Throat: The external auditory canals and pinnae were examined. The nasal septum, mucosa, and turbinates were inspected by anterior rhinoscopy. The lips, teeth, and gums were examined for abnormalities. The oral mucosa, tongue, palate, tonsils, lateral and posterior pharynx were inspected for the presence of asymmetry or mucosal lesions. Neck: The tracheal position was noted, and the neck was palpated to determine if there were any asymmetries, abnormal neck masses, or thyromegaly. Respiratory: The nature of the breathing and chest expansion/symmetry was observed. Cardiovascular: The patient was examined to determine the presence of any edema or jugular venous distension. Abdomen: The contour of the abdomen was noted. Lymphatic: The patient was examined for supraclavicular lymphadenopathy. Musculoskeletal: The patient was inspected for the presence of skeletal deformities. Extremities: The extremities were examined for any clubbing or cyanosis. Skin: The skin was examined for inflammatory or neoplastic conditions. Neurologic: The patient's orientation, mood, and affect were noted. The cranial nerve functions were examined (II-VII, IX-XII). Pertinent positive and negative findings on physical examination: Ears: AU pinnae WNL, no otorrhea. Nose: Grossly normal external appearance. Normal mucosa. No epistaxis/rhinorrhea. OC/OP: MMM, tongue midline. Symmetric palate elevation. No mucosal lesions observed. Neck: Well healed tracheotomy site. Very small amount of granulation tissue, approximately 3 to 4 mm. No ulceration or wound breakdown. No air leak noted today. Medications Medication Current Medications Albuterol (Proventil 0.083% (Neb)) 2.5 mg Q4H RESP THERAPY HHN Last administered on 02/26/19at 20:18; Admin Dose 2.5 MG; Start 02/20/19 at 01:00 Aspirin (Aspirin) 81 mg DAILY GTB Last administered on 02/26/19 08:29; Admin Dose 81 MG; Start 02/20/19 at 09:00 Atorvastatin Calcium (Lipitor) 80 mg HS GTB Last administered on 02/25/19 21:23; Admin Dose 80 MG; Start 02/20/19 at 21:00 Carvedilol (Coreg) 12.5 mg BID GTB Last administered on 02/25/19 21:23; Admin Dose 12.5 MG; Start 02/20/19 at 09:00 Docusate Sodium (Colace Liquid Cup) 100 mg BID GTB Last administered on 02/26/19 08:29; Admin Dose 100 MG; Start 02/20/19 at 09:00 Bisacodyl (Dulcolax Supp) 10 mg DAILY PRN PA CONSTIPATION; Start 02/19/19 at 22:00 Sodium Biphosphate/ Sodium Phosphate (Fleet Enema) 133 ml DAILY PRN PA CONSTIPATION; Start 02/19/19 at 22:00 Lisinopril (Zestril) 10 mg DAILY GTB Last administered on 02/25/19 09:28; Admin Dose 10 MG; Start 02/20/19 at 09:00 Magnesium Hydroxide (Milk Of Mag) 30 ml DAILY PRN GTB CONSTIPATION; Start 02/19/19 at 22:00 Polyethylene Glycol (Miralax) 17 gm DAILY GTB Last administered on 02/26/19 08:29; Admin Dose 17 GM; Start 02/20/19 at 09:00 Nicotine (Nicoderm 7 Mg/ 24 Hr) 1 patch DAILY TRANSDERM Last administered on 02/26/19 08:28; Admin Dose 1 PATCH; Start 02/20/19 at 09:00 Famotidine (Pepcid) 20 mg BID GTB Last administered on 02/26/19 08:29; Admin Dose 20 MG; Start 02/20/19 at 09:00 Clopidogrel Bisulfate (plaVIX) 75 mg DAILY GTB Last administered on 02/26/19 08:32; Admin Dose 75 MG; Start 02/20/19 at 09:00 Senna (Senokot) 1 tab HS GTB Last administered on 02/24/19 20:38; Admin Dose 1 TAB; Start 02/20/19 at 21:00 Cyanocobalamin (Vitamin B12) 1,000 mcg DAILY GTB Last administered on 02/26/19 08:29; Admin Dose 1,000 MCG; Start 02/20/19 at 09:00 Cholecalciferol (Vitamin D) 2,000 unit DAILY GTB Last administered on 02/26/19 08:29; Admin Dose 2,000 UNIT; Start 02/20/19 at 09:00 Olanzapine (Zyprexa) 2.5 mg HS PRN GTB ANXIETY Last administered on 02/21/19 22:22; Admin Dose 2.5 MG; Start 02/19/19 at 22:00 Miscellaneous Information (Pending [facility] Order For Wound Care) This patient sandhu... PRN PRN XX WOUND CARE; Start 02/19/19 at 23:00 Miscellaneous Information 1 ea NOTE XX ; Start 02/21/19 at 14:30 Acetaminophen (Tylenol Tab) 1,000 mg Q6H PRN PO MILD PAIN(1-3)OR ELEVATED TEMP Last administered on 02/23/19at 18:46; Admin Dose 1,000 MG; Start 02/23/19 at 18:30 Linezolid (Zyvox) 600 mg BID PO Last administered on 02/26/19 08:32; Admin Dose 600 MG; Start 02/25/19 at 12:30 MAYR ANN MCCANN MD Feb 26, 2019 21:11
[2019-02-26] MEDS: ATORVASTATIN 80 MG TAB GTB SCH (21:19)
[2019-02-27] MEDS: ALBUTEROL 0.083% (NEB) 2.5 MG/3 ML AMP HHN SCH ×6 (01:30→21:41)
[2019-02-27 02:15] VITALS: BP 114/65; PULSE 68; RESP 20
--- NOTE | 2019-02-27 03:24 | CONS ---
DATE OF ADMISSION: 02/19/2019 DATE OF CONSULTATION: 02/26/2019 TYPE OF CONSULTATION: Psychological. REFERRING PHYSICIAN: Zev De Leon MD CONSULTING PSYCHOLOGIST: Chon Barraza, PhD REASON FOR CONSULTATION: This consultation was requested by Dr. Maricarmen De Leon in order to evaluate t he cognitive and emotional functioning of this patient related to his present medical condition. HISTORY OF PRESENT ILLNESS: The patient is a 63-year-old male. The patient has a history of multipl e medical problems. The patient has hypertension, hyperlipidemia, coronary artery disease and recent ly had a stroke. The patient was eventually cleared medically and then sent to the acute rehabilitat ion unit at [facility] for acute multidisciplinary rehabilitation. FAMILY AND SOCIAL HISTORY: The patient reports that he lives in a townhouse in [place] with h is and daughter. The patient's daughter is a nurse and will be able to help him when he is disc harged. MEDICATIONS: The patient is currently on Zyprexa 0.5 mg p.r.n. at bedtime. SUBSTANCE USE: The patient reports that he just recently stopped smoking after having the stroke. T he patient is on a nicotine patch at the present time to help him with his nicotine withdrawal. The patient reports that he does not drink. MENTAL STATUS EXAMINATION: APPEARANCE: The patient was seen in bed. He appears to be of average height and overweight. The pa tient is on oxygen. The patient is right-handed. BEHAVIOR: The patient was cooperative during the consultation. The patient did attempt to answer al l questions presented to him by the interviewer. MOOD AND AFFECT: The patient's mood appears to be slightly depressed. Affect does appear to be slig htly anxious. The patient does admit to being depressed and anxious about what happened to him. PERCEPTION: The patient reports no hallucinations or delusions. The patient was alert to person, pl brea, situation and time. MEMORY AND COGNITION: The patient's memory and cognition were basically very good considering he jus t had a stroke. The patient was able to say the name of the hospital. The patient was able to say t he month and the year, although he first said 2021 rather then 2018, but then came up with 2019. The patient was able to state the president of [place], the governor of the [facility], a nd the mayor of [facility]. The patient was unable to spell "world" backwards he spelle d it "drwe" He was, however, able to do 4 serial 7 subtraction from 100 and then made an error, wher e he came up with 64 after 72 then he came up with 66 and could not self-corrected. Overall, given t he patient's present medical condition, his cognitions appear to be adequate at the present time and improving. INTELLIGENCE: Intelligence would appear to fall in the average to above-average range. INSIGHT: Fair. JUDGMENT: Fair. THOUGHT CONTENT: The patient is concerned about his present medical condition. The patient is motiv ated to get better and does want to return to his previous level of functioning. DISCUSSION: The patient can likely benefit from some cognitive/behavioral psychotherapy while he is on the unit. Psychotherapy would focus on his underlying level of frustration about having a stroke and all his other medical problems. 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 Thank you very much, Dr. Maricarmen De Leon, for referring this individual. Please do not hesitate to pamela nelson if you have additional questions. Dictated By: CHON BARRAZA PHD RK/JOLIE Conf#: [id number] DID#: [id number] CC: ZEV DE LEON MD;*EndCC*
[2019-02-27 07:54] VITALS: BP 111/75; PULSE 74; RESP 20
[2019-02-27] MEDS: DOCUSATE SODIUM 10 MG/ML (10ML CUP) GTB SCH ×2 (09:00→20:33)
--- NOTE | 2019-02-27 10:20 | CONS ---
Consult Date/Type/Reason Admit Date/Time Feb 19, 2019 at 21:20 Date/Time of Note DATE: 02/27/19 TIME: 10:16 Subjective 63-year-old gentleman with past medical history of hypertension, hyperlipidemia, coronary artery disease. Patient admitted to [facility] on 12/20/2018 with left-sided weakness, noted to have acute infarct in the right MCA and ICA occlusion. The patient underwent thrombectomy and stent placement in the right carotid artery. The patient's hospital course was notable for vasogenic edema, aspiration pneumonia, dysphagia. Patient required intubation and tracheostomy, PEG placement. The patient stabilized and was able to be extubated and now is without any vent or trach. The patient has a left-sided hemiplegia with neglect. Patient transferred to the rehabilitation unit for acute therapy. Patient admits to being depressed, complaining of pain and complains of separation in his shoulder. He claims that his left Achilles tendon ruptured in the hospital, pain on the right side as a compensation for physical therapy, gets tired very quickly. The patient had pneumonia, was treated fully. He denies fevers, chills, nausea, vomiting, chest pain, shortness of breath. tolerates meds and therapies. dw ent. PHYSICAL EXAMINATION: HEENT: Normocephalic. Pupils are reactive. NECK: Supple. HEART: Regular rate and rhythm. LUNGS: Clear to auscultation. ABDOMEN: Soft, nontender, nondistended. Bowel sounds present. ext: no clubbing, cyanosis, edema Objective Vitals Vital Signs Date Temp Pulse Resp B/P (MAP) Pulse Ox O2 O2 Flow FiO2 Time Delivery Rate 02/27/19 97.8 74 20 111/75 96 07:54 (87) 02/27/19 Nasal 2.0 05:02 Cannula Intake and Output 02/26/19 02/26/19 02/27/19 1414:59 22:59 06:59 IntakeIntake Total 1920 ml 650 ml OutputOutput Total 800 ml BalanceBalance 1120 ml 650 ml Results/Medications Medications Current Medications Albuterol (Proventil 0.083% (Neb)) 2.5 mg Q4H RESP THERAPY HHN Last administered on 02/27/19at 05:00; Admin Dose 2.5 MG; Start 02/20/19 at 01:00 Aspirin (Aspirin) 81 mg DAILY GTB Last administered on 02/26/19 08:29; Admin Dose 81 MG; Start 02/20/19 at 09:00 Atorvastatin Calcium (Lipitor) 80 mg HS GTB Last administered on 02/26/19 21:19; Admin Dose 80 MG; Start 02/20/19 at 21:00 Carvedilol (Coreg) 12.5 mg BID GTB Last administered on 02/26/19 21:20; Admin Dose 12.5 MG; Start 02/20/19 at 09:00 Docusate Sodium (Colace Liquid Cup) 100 mg BID GTB Last administered on 02/26/19 08:29; Admin Dose 100 MG; Start 02/20/19 at 09:00 Bisacodyl (Dulcolax Supp) 10 mg DAILY PRN [place] CONSTIPATION; Start 02/19/19 at 22:00 Sodium Biphosphate/ Sodium Phosphate (Fleet Enema) 133 ml DAILY PRN MD CONSTIPATION; Start 02/19/19 at 22:00 Lisinopril (Zestril) 10 mg DAILY GTB Last administered on 02/25/19 09:28; Admin Dose 10 MG; Start 02/20/19 at 09:00 Magnesium Hydroxide (Milk Of Mag) 30 ml DAILY PRN GTB CONSTIPATION; Start 02/19/19 at 22:00 Polyethylene Glycol (Miralax) 17 gm DAILY GTB Last administered on 02/26/19 08:29; Admin Dose 17 GM; Start 02/20/19 at 09:00 Nicotine (Nicoderm 7 Mg/ 24 Hr) 1 patch DAILY TRANSDERM Last administered on 02/26/19 08:28; Admin Dose 1 PATCH; Start 02/20/19 at 09:00 Famotidine (Pepcid) 20 mg BID GTB Last administered on 02/26/19 21:23; Admin Dose 20 MG; Start 02/20/19 at 09:00 Clopidogrel Bisulfate (plaVIX) 75 mg DAILY GTB Last administered on 02/26/19 08:32; Admin Dose 75 MG; Start 02/20/19 at 09:00 Senna (Senokot) 1 tab HS GTB Last administered on 02/24/19 20:38; Admin Dose 1 TAB; Start 02/20/19 at 21:00 Cyanocobalamin (Vitamin B12) 1,000 mcg DAILY GTB Last administered on 02/26/19at 08:29; Admin Dose 1,000 MCG; Start 02/20/19 at 09:00 Cholecalciferol (Vitamin D) 2,000 unit DAILY GTB Last administered on 02/26/19at 08:29; Admin Dose 2,000 UNIT; Start 02/20/19 at 09:00 Olanzapine (Zyprexa) 2.5 mg HS PRN GTB ANXIETY Last administered on 02/21/19at 22:22; Admin Dose 2.5 MG; Start 02/19/19 at 22:00 Miscellaneous Information [facility] This patient sandhu... PRN PRN XX WOUND CARE; Start 02/19/19 at 23:00 Miscellaneous Information 1 ea NOTE XX ; Start 02/21/19 at 14:30 Acetaminophen (Tylenol Tab) 1,000 mg Q6H PRN PO MILD PAIN(1-3)OR ELEVATED TEMP Last administered on 02/23/19at 18:46; Admin Dose 1,000 MG; Start 02/23/19 at 18:30 Linezolid (Zyvox) 600 mg BID PO Last administered on 02/26/19at 21:19; Admin Dose 600 MG; Start 02/25/19 at 12:30 Assessment/Plan Hospital Course (Demo Recall) 1. 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 Continue physical therapy as outlined, optimization for peripheral arterial disease as already started with Plavix, Lipitor, Coreg and lisinopril and aspirin. Continue to monitor. 2. Recent Enterobacter pneumonia fully treated, required trach and PEG placement, completely decannulated now. 3. leucocytosis. Do chest x-rays as a baseline to make sure that no evidence of leukocytosis on admission. Trend. id fu. 4. History of hypertension, borderline at this time. Continue regular medications and monitor. 5. Coronary artery disease. secondary prevention. 6. Depression. The patient has had benefit from psychiatrist and psychologist evaluation. 7. leucocytosis- persistent. possible vre uti but asymptomatic. repeat ua and c&S show same but 8. vre uti- poss contaminant. recheck. id consulted. zyvox started. repeat culture shows same but again without pyuria and leuc esterase negative. - will dw id. 9. drainage from previous trach site. - ent consulted. noted good granulation tissue and no further drainage. BALTAZAR UGALDE MD Feb 27, 2019 10:20
[2019-02-27] MEDS: CYANOCOBALAMIN 500 MCG TAB GTB SCH (10:27)
[2019-02-27] MEDS: FAMOTIDINE 20 MG TAB GTB SCH ×2 (10:27→20:33)
[2019-02-27] MEDS: CLOPIDOGREL 75 MG TAB GTB SCH (10:29)
[2019-02-27] MEDS: LISINOPRIL 10 MG TAB GTB SCH (10:29)
[2019-02-27] MEDS: POLYETHYLENE GLYCOL 17 GM PACKET GTB SCH (10:29)
[2019-02-27] MEDS: ASPIRIN 81 MG TAB GTB SCH (10:29)
[2019-02-27] MEDS: CHOLECALCIFEROL 2,000 UNIT CAP GTB SCH (10:29)
[2019-02-27] MEDS: ZYVOX 600 MG TAB PO SCH ×2 (10:30→20:26)
[2019-02-27] MEDS: NICOTINE (7 MG/24 HR) PATCH TRANSDERM SCH (10:46)
--- NOTE | 2019-02-27 11:39 | CONS ---
Consult Date/Type/Reason Admit Date/Time Feb 19, 2019 at 21:20 Initial Consult Date Type of Consult Pulmonary Date/Time of Note DATE: 02/27/19 TIME: 11:38 Subjective Patient appears comfortable this morning no new events. No respiratory distress. Objective Vital Signs Date Temp Pulse Resp B/P (MAP) Pulse Ox O2 O2 Flow FiO2 Time Delivery Rate 02/27/19 97.8 74 20 111/75 96 07:54 (87) 02/27/19 Nasal 2.0 05:02 Cannula Intake and Output 02/26/19 02/26/19 02/27/19 1414:59 22:59 06:59 IntakeIntake Total 1920 ml 650 ml OutputOutput Total 800 ml BalanceBalance 1120 ml 650 ml Exam PHYSICAL EXAMINATION: GENERAL: Well-nourished, well-developed gentleman, comfortable at rest, no acute distress. VITAL SIGNS: NECK: Supple. No JVD or lymphadenopathy. CARDIAC: S1, S2, no added sounds or murmurs. CHEST: Diminished air entry bilaterally. ABDOMEN: Soft, nontender. No guarding or rebound. EXTREMITIES: No cyanosis, clubbing, or edema. NEUROLOGIC: Generalized weakness. Vent Setting Fraction of Inspired Oxygen pe: 21 Results/Medications Medications Current Medications Albuterol (Proventil 0.083% (Neb)) 2.5 mg Q4H RESP THERAPY HHN Last administered on 02/27/19at 05:00; Admin Dose 2.5 MG; Start 02/20/19 at 01:00 Aspirin (Aspirin) 81 mg DAILY GTB Last administered on 02/27/19 10:29; Admin Dose 81 MG; Start 02/20/19 at 09:00 Atorvastatin Calcium (Lipitor) 80 mg HS GTB Last administered on 02/26/19 21:19; Admin Dose 80 MG; Start 02/20/19 at 21:00 Carvedilol (Coreg) 12.5 mg BID GTB Last administered on 02/27/19 10:28; Admin Dose 12.5 MG; Start 02/20/19 at 09:00 Docusate Sodium (Colace Liquid Cup) 100 mg BID GTB Last administered on 02/26/19 08:29; Admin Dose 100 MG; Start 02/20/19 at 09:00 Bisacodyl (Dulcolax Supp) 10 mg DAILY PRN [place] CONSTIPATION; Start 02/19/19 at 22:00 Sodium Biphosphate/ Sodium Phosphate (Fleet Enema) 133 ml DAILY PRN ID CONSTIPATION; Start 02/19/19 at 22:00 Lisinopril (Zestril) 10 mg DAILY GTB Last administered on 02/27/19 10:29; Admin Dose 10 MG; Start 02/20/19 at 09:00 Magnesium Hydroxide (Milk Of Mag) 30 ml DAILY PRN GTB CONSTIPATION; Start 02/19/19 at 22:00 Polyethylene Glycol (Miralax) 17 gm DAILY GTB Last administered on 02/27/19 10:29; Admin Dose 17 GM; Start 02/20/19 at 09:00 Nicotine (Nicoderm 7 Mg/ 24 Hr) 1 patch DAILY TRANSDERM Last administered on 02/27/19 10:46; Admin Dose 1 PATCH; Start 02/20/19 at 09:00 Famotidine (Pepcid) 20 mg BID GTB Last administered on 02/27/19 10:27; Admin Dose 20 MG; Start 02/20/19 at 09:00 Clopidogrel Bisulfate (plaVIX) 75 mg DAILY GTB Last administered on 02/27/19 10:29; Admin Dose 75 MG; Start 02/20/19 at 09:00 Senna (Senokot) 1 tab HS GTB Last administered on 02/24/19 20:38; Admin Dose 1 TAB; Start 02/20/19 at 21:00 Cyanocobalamin (Vitamin B12) 1,000 mcg DAILY GTB Last administered on 02/27/19 10:27; Admin Dose 1,000 MCG; Start 02/20/19 at 09:00 Cholecalciferol (Vitamin D) 2,000 unit DAILY GTB Last administered on 02/27/19 10:29; Admin Dose 2,000 UNIT; Start 02/20/19 at 09:00 Olanzapine (Zyprexa) 2.5 mg HS PRN GTB ANXIETY Last administered on 02/21/19 22:22; Admin Dose 2.5 MG; Start 02/19/19 at 22:00 Miscellaneous Information (Pending [facility] Order For Wound Care) This patient sandhu... PRN PRN XX WOUND CARE; Start 02/19/19 at 23:00 Miscellaneous Information 1 ea NOTE XX ; Start 02/21/19 at 14:30 Acetaminophen (Tylenol Tab) 1,000 mg Q6H PRN PO MILD PAIN(1-3)OR ELEVATED TEMP Last administered on 02/23/19at 18:46; Admin Dose 1,000 MG; Start 02/23/19 at 18:30 Linezolid (Zyvox) 600 mg BID PO Last administered on 02/27/19at 10:30; Admin Dose 600 MG; Start 02/25/19 at 12:30 Assessment/Plan Hospital Course (Demo Recall) IMPRESSION AND PLAN: 1. Status post respiratory failure with mild dysphagia. Continue speech therapy recommendations and aspiration precautions 2. Small air leak from trach stoma site with patent skin flap. Continue wound care per ENT recommendations. 3. Continue physical therapy. 4. Continue occupational therapy. 5. Deep vein thrombosis and gastrointestinal prophylaxis. REGINA PABON MD, [facility] Feb 27, 2019 11:39
[2019-02-27] MEDS ORDERED: BACITRACIN 0.9 GM OINT TOP SCH (13:00)
[2019-02-27] MEDS ORDERED: BACITRACIN TOP SCH (13:00)
--- NOTE | 2019-02-27 13:16 | CONS ---
Assessment/Plan Assessment/Plan Hospital Course (Demo Recall) SUBJECTIVE: No acute events, no fevers, sleeping, looks comfortable MICROBIOLOGY: Repeat Urine culture + VRE resistant to fosfomycin. Abx: Zyvox PHYSICAL EXAMINATION: GENERAL: This is well-developed, elderly man who is alert, in no distress. HEENT: Head atraumatic, normocephalic. NECK: Supple. CHEST: Rise symmetrical. Breath sounds clear. HEART: S1, S2. ABDOMEN: Soft, bowel sounds present. EXTREMITIES: Without cyanosis. ASSESSMENT: 1. Vancomycin-resistant Enterococcus urinary tract infection. 2. Hypertension. 3. Coronary artery disease. 4. History of acute UT, status post cardiac stent with thrombectomy. PLAN: Remains stable, continue abx for VRE UTI to complete 7 days Consultation Date/Type/Reason Admit Date/Time Feb 19, 2019 at 21:20 Initial Consult Date Type of Consult id Date/Time of Note DATE: 02/27/19 TIME: 13:15 Exam/Review of Systems Exam Vitals Vital Signs Date Temp Pulse Resp B/P (MAP) Pulse Ox O2 O2 Flow FiO2 Time Delivery Rate 02/27/19 97.8 74 20 111/75 96 07:54 (87) 02/27/19 Nasal 2.0 05:02 Cannula Intake and Output 02/26/19 02/26/19 02/27/19 1515:00 23:00 07:00 IntakeIntake Total 1920 ml 650 ml OutputOutput Total 800 ml BalanceBalance 1120 ml 650 ml Medications Medication Current Medications Albuterol (Proventil 0.083% (Neb)) 2.5 mg Q4H RESP THERAPY HHN Last administered on 02/27/19at 05:00; Admin Dose 2.5 MG; Start 02/20/19 at 01:00 Aspirin (Aspirin) 81 mg DAILY GTB Last administered on 02/27/19at 10:29; Admin Dose 81 MG; Start 02/20/19 at 09:00 Atorvastatin Calcium (Lipitor) 80 mg HS GTB Last administered on 02/26/19at 21:19; Admin Dose 80 MG; Start 02/20/19 at 21:00 Carvedilol (Coreg) 12.5 mg BID GTB Last administered on 02/27/19at 10:28; Admin Dose 12.5 MG; Start 02/20/19 at 09:00 Docusate Sodium (Colace Liquid Cup) 100 mg BID GTB Last administered on 02/26/19 08:29; Admin Dose 100 MG; Start 02/20/19 at 09:00 Bisacodyl (Dulcolax Supp) 10 mg DAILY PRN [place] CONSTIPATION; Start 02/19/19 at 22:00 Sodium Biphosphate/ Sodium Phosphate (Fleet Enema) 133 ml DAILY PRN [place] CONSTIPATION; Start 02/19/19 at 22:00 Lisinopril (Zestril) 10 mg DAILY GTB Last administered on 02/27/19 10:29; Admin Dose 10 MG; Start 02/20/19 at 09:00 Magnesium Hydroxide (Milk Of Mag) 30 ml DAILY PRN GTB CONSTIPATION; Start 02/19/19 at 22:00 Polyethylene Glycol (Miralax) 17 gm DAILY GTB Last administered on 02/27/19 10:29; Admin Dose 17 GM; Start 02/20/19 at 09:00 Nicotine (Nicoderm 7 Mg/ 24 Hr) 1 patch DAILY TRANSDERM Last administered on 02/27/19 10:46; Admin Dose 1 PATCH; Start 02/20/19 at 09:00 Famotidine (Pepcid) 20 mg BID GTB Last administered on 02/27/19 10:27; Admin Dose 20 MG; Start 02/20/19 at 09:00 Clopidogrel Bisulfate (plaVIX) 75 mg DAILY GTB Last administered on 02/27/19 10:29; Admin Dose 75 MG; Start 02/20/19 at 09:00 Senna (Senokot) 1 tab HS GTB Last administered on 02/24/19 20:38; Admin Dose 1 TAB; Start 02/20/19 at 21:00 Cyanocobalamin (Vitamin B12) 1,000 mcg DAILY GTB Last administered on 02/27/19 10:27; Admin Dose 1,000 MCG; Start 02/20/19 at 09:00 Cholecalciferol (Vitamin D) 2,000 unit DAILY GTB Last administered on 02/27/19 10:29; Admin Dose 2,000 UNIT; Start 02/20/19 at 09:00 Olanzapine (Zyprexa) 2.5 mg HS PRN GTB ANXIETY Last administered on 02/21/19 22:22; Admin Dose 2.5 MG; Start 02/19/19 at 22:00 Miscellaneous Information (Pending [facility] Order For Wound Care) This patient sandhu... PRN PRN XX WOUND CARE; Start 02/19/19 at 23:00 Miscellaneous Information 1 ea NOTE XX ; Start 02/21/19 at 14:30 Acetaminophen (Tylenol Tab) 1,000 mg Q6H PRN PO MILD PAIN(1-3)OR ELEVATED TEMP Last administered on 02/23/19at 18:46; Admin Dose 1,000 MG; Start 02/23/19 at 18:30 Linezolid (Zyvox) 600 mg BID PO Last administered on 02/27/19at 10:30; Admin Dose 600 MG; Start 02/25/19 at 12:30 Non-Formulary Medication 1 ea BID TOP ; Start 02/27/19 at 13:00 TOÑO RDZ NP Feb 27, 2019 13:16
[2019-02-27 14:00] VITALS: BP 118/64; PULSE 64; RESP 18
--- NOTE | 2019-02-27 17:16 | PN ---
Date/Time of Note Date/Time of Note DATE: 02/27/19 TIME: 17:14 Objective Vital Signs Date Temp Pulse Resp B/P (MAP) Pulse Ox O2 O2 Flow FiO2 Time Delivery Rate 02/27/19 98.6 64 18 118/64 96 14:00 (82) 02/27/19 Nasal 2.0 13:44 Cannula Intake and Output 02/26/19 02/26/19 02/27/19 1515:00 23:00 07:00 IntakeIntake Total 1920 ml 650 ml OutputOutput Total 800 ml BalanceBalance 1120 ml 650 ml Exam INTERDISCIPLINARY TEAM CONFERENCE Attended by PT, OT, ST, Social Work, Rehabilitation Nursing, Steel Wheel Engraver and Adoption Social WorkerSupervisor [employer] Exam: Pulm- cta Abd-soft BOWEL- incont BLADDER-incont SKIN- improving OT- DRESSING-dep BATHING-dep TOILETING-dep PT- BED MOBILITY-dep TRANSFERS-dep WHEELCHAIR-mod SPEECH- notable Left neglect COGNITION- min/mod Dysphagia- puree diet A/P- Interdisciplinary team conference held today. Please see interdisciplinary sheet. Working toward d.c. on 02/28 with post discharge follow up of physical therapy, occupational therapy at lower level of care Results/Medications Medications Current Medications Albuterol (Proventil 0.083% (Neb)) 2.5 mg Q4H RESP THERAPY HHN Last administered on 02/27/19at 13:44; Admin Dose 2.5 MG; Start 02/20/19 at 01:00 Aspirin (Aspirin) 81 mg DAILY GTB Last administered on 02/27/19 10:29; Admin Dose 81 MG; Start 02/20/19 at 09:00 Atorvastatin Calcium (Lipitor) 80 mg HS GTB Last administered on 02/26/19at 21:19; Admin Dose 80 MG; Start 02/20/19 at 21:00 Carvedilol (Coreg) 12.5 mg BID GTB Last administered on 02/27/19at 10:28; Admin Dose 12.5 MG; Start 02/20/19 at 09:00 Docusate Sodium (Colace Liquid Cup) 100 mg BID GTB Last administered on 02/26/19 08:29; Admin Dose 100 MG; Start 02/20/19 at 09:00 Bisacodyl (Dulcolax Supp) 10 mg DAILY PRN [place] CONSTIPATION; Start 02/19/19 at 22:00 Sodium Biphosphate/ Sodium Phosphate (Fleet Enema) 133 ml DAILY PRN [place] NSTIPATION; Start 02/19/19 at 22:00 Lisinopril (Zestril) 10 mg DAILY GTB Last administered on 02/27/19 10:29; Admin Dose 10 MG; Start 02/20/19 at 09:00 Magnesium Hydroxide (Milk Of Mag) 30 ml DAILY PRN GTB CONSTIPATION; Start 02/19/19 at 22:00 Polyethylene Glycol (Miralax) 17 gm DAILY GTB Last administered on 02/27/19 10:29; Admin Dose 17 GM; Start 02/20/19 at 09:00 Nicotine (Nicoderm 7 Mg/ 24 Hr) 1 patch DAILY TRANSDERM Last administered on 02/27/19 10:46; Admin Dose 1 PATCH; Start 02/20/19 at 09:00 Famotidine (Pepcid) 20 mg BID GTB Last administered on 02/27/19 10:27; Admin Dose 20 MG; Start 02/20/19 at 09:00 Clopidogrel Bisulfate (plaVIX) 75 mg DAILY GTB Last administered on 02/27/19 10:29; Admin Dose 75 MG; Start 02/20/19 at 09:00 Senna (Senokot) 1 tab HS GTB Last administered on 02/24/19 20:38; Admin Dose 1 TAB; Start 02/20/19 at 21:00 Cyanocobalamin (Vitamin B12) 1,000 mcg DAILY GTB Last administered on 02/27/19 10:27; Admin Dose 1,000 MCG; Start 02/20/19 at 09:00 Cholecalciferol (Vitamin D) 2,000 unit DAILY GTB Last administered on 02/27/19 10:29; Admin Dose 2,000 UNIT; Start 02/20/19 at 09:00 Olanzapine (Zyprexa) 2.5 mg HS PRN GTB ANXIETY Last administered on 02/21/19 22:22; Admin Dose 2.5 MG; Start 02/19/19 at 22:00 Miscellaneous Information (Pending [facility] Order For Wound Care) This patient sandhu... PRN PRN XX WOUND CARE; Start 02/19/19 at 23:00 Miscellaneous Information 1 ea NOTE XX ; Start 02/21/19 at 14:30 Acetaminophen (Tylenol Tab) 1,000 mg Q6H PRN PO MILD PAIN(1-3)OR ELEVATED TEMP Last administered on 02/23/19at 18:46; Admin Dose 1,000 MG; Start 02/23/19 at 18:30 Linezolid (Zyvox) 600 mg BID PO Last administered on 02/27/19at 10:30; Admin Dose 600 MG; Start 02/25/19 at 12:30 Non-Formulary Medication 1 ea BID TOP ; Start 02/27/19 at 13:00 ZEV LIVE MD Feb 27, 2019 17:16
[2019-02-27] MEDS: BACITRACIN TOP SCH ×2 (19:29→20:26)
[2019-02-27 20:18] VITALS: BP 113/68; PULSE 68; RESP 18
[2019-02-27] MEDS: ATORVASTATIN 80 MG TAB GTB SCH (20:25)
[2019-02-27] MEDS: SENNA TAB GTB SCH (20:25)
[2019-02-27] MEDS ORDERED: GUAIFENESIN/DM 5ML CUP PO PRN (22:00)
[2019-02-28] MEDS: ALBUTEROL 0.083% (NEB) 2.5 MG/3 ML AMP HHN SCH ×4 (01:45→13:59)
[2019-02-28 02:00] VITALS: BP 116/65; PULSE 72; RESP 18
[2019-02-28] MEDS: BACITRACIN TOP SCH (06:38)
[2019-02-28 07:00] VITALS: BP 119/70; PULSE 76; RESP 18
[2019-02-28] MEDS: POLYETHYLENE GLYCOL 17 GM PACKET GTB SCH (08:26)
[2019-02-28] MEDS: ASPIRIN 81 MG TAB GTB SCH (08:29)
[2019-02-28] MEDS: FAMOTIDINE 20 MG TAB GTB SCH (08:29)
[2019-02-28] MEDS: ZYVOX 600 MG TAB PO SCH (08:29)
[2019-02-28] MEDS: DOCUSATE SODIUM 10 MG/ML (10ML CUP) GTB SCH (08:30)
[2019-02-28] MEDS: CLOPIDOGREL 75 MG TAB GTB SCH (08:30)
[2019-02-28] MEDS: CYANOCOBALAMIN 500 MCG TAB GTB SCH (08:30)
[2019-02-28] MEDS: CHOLECALCIFEROL 2,000 UNIT CAP GTB SCH (08:30)
[2019-02-28] MEDS: LISINOPRIL 10 MG TAB GTB SCH (08:31)
[2019-02-28] MEDS: NICOTINE (7 MG/24 HR) PATCH TRANSDERM SCH (08:35)
--- NOTE | 2019-02-28 11:21 | CONS ---
Consult Date/Type/Reason Admit Date/Time Feb 19, 2019 at 21:20 Date/Time of Note DATE: 02/28/19 TIME: 11:20 Subjective 63-year-old gentleman with past medical history of hypertension, hyperlipidemia, coronary artery disease. Patient admitted to [facility] on 12/20/2018 with left-sided weakness, noted to have acute infarct in the right MCA and ICA occlusion. The patient underwent thrombectomy and stent placement in the right carotid artery. The patient's hospital course was notable for vasogenic edema, aspiration pneumonia, dysphagia. Patient required intubation and tracheostomy, PEG placement. The patient stabilized and was able to be extubated and now is without any vent or trach. The patient has a left-sided hemiplegia with neglect. Patient transferred to the rehabilitation unit for acute therapy. Patient admits to being depressed, complaining of pain and complains of separation in his shoulder. He claims that his left Achilles tendon ruptured in the hospital, pain on the right side as a compensation for physical therapy, gets tired very quickly. The patient had pneumonia, was treated fully. He denies fevers, chills, nausea, vomiting, chest pain, shortness of breath. In much better spirits this am. Hopeful now of reasonable recovery tolerates meds and therapies. PHYSICAL EXAMINATION: HEENT: Normocephalic. Pupils are reactive. NECK: Supple. HEART: Regular rate and rhythm. LUNGS: Clear to auscultation. ABDOMEN: Soft, nontender, nondistended. Bowel sounds present. ext: no clubbing, cyanosis, edema Objective Vitals Vital Signs Date Temp Pulse Resp B/P (MAP) Pulse Ox O2 O2 Flow FiO2 Time Delivery Rate 02/28/19 Nasal 2.0 08:00 Cannula 02/28/19 67 20 97 05:15 02/28/19 97.8 116/65 02:00 (82) Intake and Output 02/27/19 02/27/19 02/28/19 1515:00 23:00 07:00 IntakeIntake Total 800 ml 600 ml 200 ml OutputOutput Total 300 ml BalanceBalance 500 ml 600 ml 200 ml Results/Medications Medications Current Medications Albuterol (Proventil 0.083% (Neb)) 2.5 mg Q4H RESP THERAPY HHN Last administered on 02/28/19at 05:15; Admin Dose 2.5 MG; Start 02/20/19 at 01:00 Aspirin (Aspirin) 81 mg DAILY GTB Last administered on 02/28/19 08:29; Admin Dose 81 MG; Start 02/20/19 at 09:00 Atorvastatin Calcium (Lipitor) 80 mg HS GTB Last administered on 02/27/19 20:25; Admin Dose 80 MG; Start 02/20/19 at 21:00 Carvedilol (Coreg) 12.5 mg BID GTB Last administered on 02/28/19 08:30; Admin Dose 12.5 MG; Start 02/20/19 at 09:00 Docusate Sodium (Colace Liquid Cup) 100 mg BID GTB Last administered on 02/28/19 08:30; Admin Dose 100 MG; Start 02/20/19 at 09:00 Bisacodyl (Dulcolax Supp) 10 mg DAILY PRN [place] CONSTIPATION; Start 02/19/19 at 22:00 Sodium Biphosphate/ Sodium Phosphate (Fleet Enema) 133 ml DAILY PRN [place] CONSTIPATION; Start 02/19/19 at 22:00 Lisinopril (Zestril) 10 mg DAILY GTB Last administered on 02/27/19 10:29; Admin Dose 10 MG; Start 02/20/19 at 09:00 Magnesium Hydroxide (Milk Of Mag) 30 ml DAILY PRN GTB CONSTIPATION; Start 02/19/19 at 22:00 Polyethylene Glycol (Miralax) 17 gm DAILY GTB Last administered on 02/28/19 0 8:26; Admin Dose 17 GM; Start 02/20/19 at 09:00 Nicotine (Nicoderm 7 Mg/ 24 Hr) 1 patch DAILY TRANSDERM Last administered on 08:35; Admin Dose 1 PATCH; Start 02/20/19 at 09:00 Famotidine (Pepcid) 20 mg BID GTB Last administered on 02/28/19 08:29; Admin Dose 20 MG; Start 02/20/19 at 09:00 Clopidogrel Bisulfate (plaVIX) 75 mg DAILY GTB Last administered on 02/28/19 08:30; Admin Dose 75 MG; Start 02/20/19 at 09:00 Senna (Senokot) 1 tab HS GTB Last administered on 02/27/19 20:25; Admin Dose 1 TAB; Start 02/20/19 at 21:00 Cyanocobalamin (Vitamin B12) 1,000 mcg DAILY GTB Last administered on 02/28/19 08:30; Admin Dose 1,000 MCG; Start 02/20/19 at 09:00 Cholecalciferol (Vitamin D) 2,000 unit DAILY GTB Last administered on 02/28/19 08:30; Admin Dose 2,000 UNIT; Start 02/20/19 at 09:00 Olanzapine (Zyprexa) 2.5 mg HS PRN GTB ANXIETY Last administered on 02/21/19at 22:22; Admin Dose 2.5 MG; Start 02/19/19 at 22:00 Miscellaneous Information (Pending [facility] Order For Wound Care) This patient sandhu... PRN PRN XX WOUND CARE; Start 02/19/19 at 23:00 Miscellaneous Information 1 ea NOTE XX ; Start 02/21/19 at 14:30 Acetaminophen (Tylenol Tab) 1,000 mg Q6H PRN PO MILD PAIN(1-3)OR ELEVATED TEMP Last administered on 02/23/19at 18:46; Admin Dose 1,000 MG; Start 02/23/19 at 18:30 Linezolid (Zyvox) 600 mg BID PO Last administered on 02/28/19 08:29; Admin Dose 600 MG; Start 02/25/19 at 12:30 Non-Formulary Medication 1 ea BID TOP Last administered on 02/28/19 06:38; Admin Dose 1 EA; Start 02/27/19 at 13:00 Guaifenesin/ Dextromethorphan (Robitussin Dm Liquid Cup) 15 ml Q4H PRN PO COUGH; Start 02/27/19 at 22:00 Assessment/Plan Hospital Course (Demo Recall) 1. 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 Continue physical therapy as outlined, optimization for peripheral arterial disease as already started with Plavix, Lipitor, Coreg and lisinopril and aspirin. Continue to monitor. 2. Recent Enterobacter pneumonia fully treated, required trach and PEG placement, completely decannulated now. 3. leucocytosis. Do chest x-rays as a baseline to make sure that no evidence of leukocytosis on admission. Trend. id fu. 4. History of hypertension, borderline at this time. Continue regular medications and monitor. 5. Coronary artery disease. secondary prevention. 6. Depression. The patient has had benefit from psychiatrist and psychologist evaluation. 7. leucocytosis- persistent. possible vre uti but asymptomatic. repeat ua and c&S show same but 8. vre uti- poss contaminant. recheck. id consulted. zyvox started. to complete 7 days - repeat culture shows same but again without pyuria and leuc esterase negative. - will dw id. 9. drainage from previous trach site. - ent consulted. noted good granulation tissue and no further drainage. BALTAZAR UGALDE MD Feb 28, 2019 11:21
--- NOTE | 2019-02-28 11:49 | CONS ---
Assessment/Plan Assessment/Plan Hospital Course (Demo Recall) SUBJECTIVE: No acute events looks comfortable MICROBIOLOGY: Repeat Urine culture + VRE resistant to fosfomycin. Abx: Zyvox #4 PHYSICAL EXAMINATION: GENERAL: This is well-developed, elderly man who is alert, in no distress. HEENT: Head atraumatic, normocephalic. NECK: Supple. CHEST: Rise symmetrical. Breath sounds clear. HEART: S1, S2. ABDOMEN: Soft, bowel sounds present. EXTREMITIES: Without cyanosis. ASSESSMENT: 1. Vancomycin-resistant Enterococcus urinary tract infection. 2. Hypertension. 3. Coronary artery disease. 4. History of acute DE, status post cardiac stent with thrombectomy. PLAN: Remains stable, continue Zyvox for 3 more days Consultation Date/Type/Reason Admit Date/Time Feb 19, 2019 at 21:20 Initial Consult Date Type of Consult id Date/Time of Note DATE: 02/28/19 TIME: 11:48 Exam/Review of Systems Exam Vitals Vital Signs Date Temp Pulse Resp B/P (MAP) Pulse Ox O2 O2 Flow FiO2 Time Delivery Rate 02/28/19 Nasal 2.0 08:00 Cannula 02/28/19 67 20 97 05:15 02/28/19 97.8 116/65 02:00 (82) Intake and Output 02/27/19 02/27/19 02/28/19 1515:00 23:00 07:00 IntakeIntake Total 800 ml 600 ml 200 ml OutputOutput Total 300 ml BalanceBalance 500 ml 600 ml 200 ml Medications Medication Current Medications Albuterol (Proventil 0.083% (Neb)) 2.5 mg Q4H RESP THERAPY HHN Last administered on 02/28/19at 05:15; Admin Dose 2.5 MG; Start 02/20/19 at 01:00 Aspirin (Aspirin) 81 mg DAILY GTB Last administered on 02/28/19 08:29; Admin Dose 81 MG; Start 02/20/19 at 09:00 Atorvastatin Calcium (Lipitor) 80 mg HS GTB Last administered on 02/27/19at 20:25; Admin Dose 80 MG; Start 02/20/19 at 21:00 Carvedilol (Coreg) 12.5 mg BID GTB Last administered on 02/28/19at 08:30; Admin Dose 12.5 MG; Start 02/20/19 at 09:00 Docusate Sodium (Colace Liquid Cup) 100 mg BID GTB Last administered on 02/28/19 08:30; Admin Dose 100 MG; Start 02/20/19 at 09:00 Bisacodyl (Dulcolax Supp) 10 mg DAILY PRN DC CONSTIPATION; Start 02/19/19 at 22:00 Sodium Biphosphate/ Sodium Phosphate (Fleet Enema) 133 ml DAILY PRN DC CONSTIPATION; Start 02/19/19 at 22:00 Lisinopril (Zestril) 10 mg DAILY GTB Last administered on 02/27/19 10:29; Admin Dose 10 MG; Start 02/20/19 at 09:00 Magnesium Hydroxide (Milk Of Mag) 30 ml DAILY PRN GTB CONSTIPATION; Start 02/19/19 at 22:00 Polyethylene Glycol (Miralax) 17 gm DAILY GTB Last administered on 02/28/19 08:26; Admin Dose 17 GM; Start 02/20/19 at 09:00 Nicotine (Nicoderm 7 Mg/ 24 Hr) 1 patch DAILY TRANSDERM Last administered on 02/28/19 08:35; Admin Dose 1 PATCH; Start 02/20/19 at 09:00 Famotidine (Pepcid) 20 mg BID GTB Last administered on 02/28/19 08:29; Admin Dose 20 MG; Start 02/20/19 at 09:00 Clopidogrel Bisulfate (plaVIX) 75 mg DAILY GTB Last administered on 02/28/19 08:30; Admin Dose 75 MG; Start 02/20/19 at 09:00 Senna (Senokot) 1 tab HS GTB Last administered on 02/27/19 20:25; Admin Dose 1 TAB; Start 02/20/19 at 21:00 Cyanocobalamin (Vitamin B12) 1,000 mcg DAILY GTB Last administered on 02/28/19 08:30; Admin Dose 1,000 MCG; Start 02/20/19 at 09:00 Cholecalciferol (Vitamin D) 2,000 unit DAILY GTB Last administered on 02/28/19 08:30; Admin Dose 2,000 UNIT; Start 02/20/19 at 09:00 Olanzapine (Zyprexa) 2.5 mg HS PRN GTB ANXIETY Last administered on 02/21/19 22:22; Admin Dose 2.5 MG; Start 02/19/19 at 22:00 Miscellaneous Information (Pending [facility] Order For Wound Care) This patient sandhu... PRN PRN XX WOUND CARE; Start 02/19/19 at 23:00 Miscellaneous Information 1 ea NOTE XX ; Start 02/21/19 at 14:30 Acetaminophen (Tylenol Tab) 1,000 mg Q6H PRN PO MILD PAIN(1-3)OR ELEVATED TEMP Last administered on 02/23/19at 18:46; Admin Dose 1,000 MG; Start 02/23/19 at 18:30 Linezolid (Zyvox) 600 mg BID PO Last administered on 02/28/19at 08:29; Admin Dose 600 MG; Start 02/25/19 at 12:30 Non-Formulary Medication 1 ea BID TOP Last administered on 02/28/19at 06:38; Admin Dose 1 EA; Start 02/27/19 at 13:00 Guaifenesin/ Dextromethorphan (Robitussin Dm Liquid Cup) 15 ml Q4H PRN PO COUGH ; Start 02/27/19 at 22:00 TOÑO RDZ NP Feb 28, 2019 11:49
--- NOTE | 2019-02-28 12:10 | CONS ---
Consult Date/Type/Reason Admit Date/Time Feb 19, 2019 at 21:20 Initial Consult Date Type of Consult Pulmonary Date/Time of Note DATE: 02/28/19 TIME: 12:09 Subjective No significant changes No air leak. Scheduled for discharge today. Objective Vital Signs Date Temp Pulse Resp B/P (MAP) Pulse Ox O2 O2 Flow FiO2 Time Delivery Rate 02/28/19 Nasal 2.0 08:00 Cannula 02/28/19 67 20 97 05:15 02/28/19 97.8 116/65 02:00 (82) Intake and Output 02/27/19 02/27/19 02/28/19 1515:00 23:00 07:00 IntakeIntake Total 800 ml 600 ml 200 ml OutputOutput Total 300 ml BalanceBalance 500 ml 600 ml 200 ml Exam PHYSICAL EXAMINATION: GENERAL: Well-nourished, well-developed gentleman, comfortable at rest, no acute distress. VITAL SIGNS: NECK: Supple. No JVD or lymphadenopathy. CARDIAC: S1, S2, no added sounds or murmurs. CHEST: Diminished air entry bilaterally. ABDOMEN: Soft, nontender. No guarding or rebound. EXTREMITIES: No cyanosis, clubbing, or edema. NEUROLOGIC: Generalized weakness. Vent Setting Fraction of Inspired Oxygen pe: 21 Results/Medications Medications Current Medications Albuterol (Proventil 0.083% (Neb)) 2.5 mg Q4H RESP THERAPY HHN Last administered on 02/28/19 05:15; Admin Dose 2.5 MG; Start 02/20/19 at 01:00 Aspirin (Aspirin) 81 mg DAILY GTB Last administered on 02/28/19 08:29; Admin Dose 81 MG; Start 02/20/19 at 09:00 Atorvastatin Calcium (Lipitor) 80 mg HS GTB Last administered on 02/27/19 20:25; Admin Dose 80 MG; Start 02/20/19 at 21:00 Carvedilol (Coreg) 12.5 mg BID GTB Last administered on 02/28/19 08:30; Admin Dose 12.5 MG; Start 02/20/19 at 09:00 Docusate Sodium (Colace Liquid Cup) 100 mg BID GTB Last administered on 02/28/19 08:30; Admin Dose 100 MG; Start 02/20/19 at 09:00 Bisacodyl (Dulcolax Supp) [address] CONSTIPATION; Start 02/19/19 at 22:00 Sodium Biphosphate/ Sodium Phosphate (Fleet Enema) [address] CONSTIPATION; Start 02/19/19 at 22:00 Lisinopril (Zestril) 10 mg DAILY GTB Last administered on 02/27/19 10:29; Admin Dose 10 MG; Start 02/20/19 at 09:00 Magnesium Hydroxide (Milk Of Mag) 30 ml DAILY PRN GTB CONSTIPATION; Start 02/19/19 at 22:00 Polyethylene Glycol (Miralax) 17 gm DAILY GTB Last administered on 02/28/19 08:26; Admin Dose 17 GM; Start 02/20/19 at 09:00 Nicotine (Nicoderm 7 Mg/ 24 Hr) 1 patch DAILY TRANSDERM Last administered on 02/28/19 08:35; Admin Dose 1 PATCH; Start 02/20/19 at 09:00 Famotidine (Pepcid) 20 mg BID GTB Last administered on 02/28/19 08:29; Admin Dose 20 MG; Start 02/20/19 at 09:00 Clopidogrel Bisulfate (plaVIX) 75 mg DAILY GTB Last administered on 02/28/19 08:30; Admin Dose 75 MG; Start 02/20/19 at 09:00 Senna (Senokot) 1 tab HS GTB Last administered on 02/27/19 20:25; Admin Dose 1 TAB; Start 02/20/19 at 21:00 Cyanocobalamin (Vitamin B12) 1,000 mcg DAILY GTB Last administered on 02/28/19 08:30; Admin Dose 1,000 MCG; Start 02/20/19 at 09:00 Cholecalciferol (Vitamin D) 2,000 unit DAILY GTB Last administered on 02/28/19 08:30; Admin Dose 2,000 UNIT; Start 02/20/19 at 09:00 Olanzapine (Zyprexa) 2.5 mg HS PRN GTB ANXIETY Last administered on 02/21/19 22:22; Admin Dose 2.5 MG; Start 02/19/19 at 22:00 Miscellaneous Information (Pending [facility] Order For Wound Care) This patient sandhu... PRN PRN XX WOUND CARE; Start 02/19/19 at 23:00 Miscellaneous Information 1 ea NOTE XX ; Start 02/21/19 at 14:30 Acetaminophen (Tylenol Tab) 1,000 mg Q6H PRN PO MILD PAIN(1-3)OR ELEVATED TEMP Last administered on 02/23/19at 18:46; Admin Dose 1,000 MG; Start 02/23/19 at 18:30 Linezolid (Zyvox) 600 mg BID PO Last administered on 02/28/19at 08:29; Admin Dose 600 MG; Start 02/25/19 at 12:30 Non-Formulary Medication 1 ea BID TOP Last administered on 02/28/19at 06:38; Admin Dose 1 EA; Start 02/27/19 at 13:00 Guaifenesin/ Dextromethorphan (Robitussin Dm Liquid Cup) 15 ml Q4H PRN PO COUGH; Start 02/27/19 at 22:00 Assessment/Plan Hospital Course (Demo Recall) IMPRESSION AND PLAN: 1. Status post respiratory failure with mild dysphagia. Continue speech therapy recommendations and aspiration precautions 2. Reduced air leak from trach stoma site with patent skin flap. Continue wound care per ENT recommendations. 3. Continue physical therapy. 4. Continue occupational therapy. 5. Deep vein thrombosis and gastrointestinal prophylaxis. agree with dc planning. REGINA PABON MD, [facility] Feb 28, 2019 12:10
[2019-02-28 14:00] VITALS: BP 128/73; PULSE 41; RESP 18
--- NOTE | 2019-03-05 14:17 | DS ---
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 2. Dysphagia, status post percutaneous endoscopic gastrostomy. 3. S/P Aspiration pneumonia, acute respiratory failure. 4. Small air leak from old trach site, with skin flap. 5. Hypertension. 6. Sepsis, urinary tract infection. 7. Gastritis. 8. Status post Clostridium difficile. 9. Impairments in self-care, mobility and cognition. Patient Condition: Fair Hospital Course The patient was admitted for comprehensive interdisciplinary rehabilitation and made gradual limited functional gains from a Dependent level to a max/dependent level for self care tasks and mobility. Patient noted to have a small air leak from old trach site. Patient had gradual improvement in activity tolerance and now is ready to discharge to a lower level of care. The DC meds are per the medication reconciliation sheet. The patient will follow up with PMD upon DC. Primary Care Provider Not On Staff Doctor ZEV LIVE MD Mar 05, 2019 14:17
== END 2019-02-28 16:09 | DRG 57 ==
LOC: VRC 21:20
PROVIDERS: ADMIT Internal Medicine Nephrology; ATTEND Physical Medicine & Rehabilitation
PROC: F07Z9FZ Gait Training/Functional Ambulation Treatment using Assistive, Adaptive, Supportive or Protective Equipment (ICD-10-PCS; principal; 2019-02-19)
PROC: F07Z8FZ Transfer Training Treatment using Assistive, Adaptive, Supportive or Protective Equipment (ICD-10-PCS; 2019-02-19)
PROC: F07Z5FZ Bed Mobility Treatment using Assistive, Adaptive, Supportive or Protective Equipment (ICD-10-PCS; 2019-02-19)
PROC: F08Z2FZ Grooming/Personal Hygiene Treatment using Assistive, Adaptive, Supportive or Protective Equipment (ICD-10-PCS; 2019-02-19)
PROC: F08Z0FZ Bathing/Showering Techniques Treatment using Assistive, Adaptive, Supportive or Protective Equipment (ICD-10-PCS; 2019-02-19)
PROC: F08Z1FZ Dressing Techniques Treatment using Assistive, Adaptive, Supportive or Protective Equipment (ICD-10-PCS; 2019-02-19)
DX: I69.354 Hemiplegia and hemiparesis following cerebral infarction affecting left non-dominant side (principal); N39.0 Urinary tract infection, site not specified; R13.10 Dysphagia, unspecified; Z93.1 Gastrostomy status; E78.5 Hyperlipidemia, unspecified; I10 Essential (primary) hypertension; I25.10 Atherosclerotic heart disease of native coronary artery without angina pectoris; I25.2 Old myocardial infarction; B95.2 Enterococcus as the cause of diseases classified elsewhere; Z16.21 Resistance to vancomycin; F06.31 Mood disorder due to known physiological condition with depressive features; Z95.5 Presence of coronary angioplasty implant and graft; K29.70 Gastritis, unspecified, without bleeding; Z86.19 Personal history of other infectious and parasitic diseases; Z87.01 Personal history of pneumonia (recurrent); Z79.82 Long term (current) use of aspirin
CPT/HCPCS: 71045; 74230; 80053; 81001; 81003; 82962; 85025; 87081; 87086; 92507; 92523; 92526; 92610; 92611; 94640; 94664; 97110; 97112; 97163; 97167; 97530; 97535; 97542; A4310; J1815; L3675